=== PATIENT | male | born 1950 | race Caucasian/White ===

== ENCOUNTER 2020-03-18 06:11 | Outpatient (REF) | payer MEDICARE, MEDICAID, SELFPAY ==
[2020-03-18 11:30] LABS: MANUAL DIFF FLAG NO
[2020-03-18 11:40] LABS: Basophils Percent Auto 0.6 % (0-2); Eosinophils Absolute Auto 0.1 X10*3/uL (0.0-0.4); Eosinophils Percent Auto 1.6 % (0-4); Hematocrit 48.5 % (42-52); Hemoglobin 15.6 g/dl (14.0-18.0); Lymphocytes Percent Auto 20.4 % (20-40); Mean Corpuscular HGB Conc 32.2 g/dl (31.0-36.0); Mean Corpuscular Hemoglobin 29.5 pg (27.0-33.0); Mean Corpuscular Volume 91.7 fL (80-98); Mean Platelet Volume 11.7 fL (9.4-12.4); Monocytes Absolute Auto 0.4 X10*3/uL (0.1-1.2); Monocytes Percent Auto 8.4 % (2-11); Neutrophils Absolute Auto 3.4 X10*3/uL (2.0-8.3); Platelet Count 187 X10*3/uL (160-400); Red Blood Count 5.29 X10*6/uL (4.60-5.80); Red Cell Distribution Width 12.9 % (11.0-16.0); White Blood Count 4.9 X10*3/uL (4.8-10.8)
[2020-03-18 11:48] LABS: Estimated Average Glucose 114 mg/dL; Hemoglobin A1C 149.8022 umol/L; Hemoglobin A1c % 5.6 %
[2020-03-18 12:02] LABS: Alanine Aminotransferase 14 U/L (0-40); Albumin Level 3.9 g/dL (3.5-5.0); Alkaline Phosphatase 69 U/L (39-117); Anion Gap 13 (12-20); Aspartate Amino Transferase 13 U/L (5-37); Bilirubin Direct 0.3 mg/dL (0.0-0.5); Bilirubin Total 0.6 mg/dL (0.0-1.0); Blood Urea Nitrogen 16 mg/dL (9-16); Carbon Dioxide 25 mmol/L (22-29); Chloride 108 mmol/L (96-108); Cholesterol 109 mg/dL; Estimated Glomerular Filt Rate > 60; Glucose Fasting 106 mg/dL (60-99); HDL Cholesterol 39 mg/dL; LDL Cholesterol Calculated 63 mg/dl; Potassium 4.7 mmol/l (3.3-5.1); Sodium 141 mmol/L (135-145); Total Protein 6.8 g/dL (6.5-8.0); Triglycerides 36 mg/dL
[2020-03-18 12:41] LABS: Prostate Specific Antigen Scr < 0.05 ng/mL (<0.05-4.0)
== END 2020-03-18 06:12 | disposition home or self-care (01) ==
LOC: HO.HMGCLDS 06:11
PROVIDERS: PCP Internal Medicine; Visit Provider Internal Medicine
DX: E11.9 Type 2 diabetes mellitus without complications (principal); R53.83 Other fatigue
CPT/HCPCS: 36415; 80051; 80061; 80076; 82565; 82947; 83036; 84153; 84520; 85025

== ENCOUNTER 2020-07-02 12:02 | Day surgery (SDC) | payer MEDICARE, MEDICAID, SELFPAY ==
[2020-06-26 13:30] VITALS: BMI 25.2
--- NOTE | 2020-06-30 14:44 | HO.ANESPROP2 ---
Documented by User: Odalys Sanderson 06/30/20 14:44 HPI - Anesthesia Eval Consult details Narrative: 69yo M for Upper Endoscopy and Colonoscopy [facility] Past Medical History Medical History Anxiety Barretts esophagus Diabetes mellitus History of prostate cancer PTSD (post-traumatic stress disorder) Surgical History Surgical History Hx of colonoscopy Hx of esophagogastroduodenoscopy Hx of radical prostatectomy Social History Social History Are you a primary hospice patient care secretary to a significant other at home: No Do you presently have visiting nurse or other home services: No Smoking Status: Never smoker Use of substances other than those prescribed or required for medical reasons: No Have you been hit, kicked, punched, or otherwise hurt by someone within the past year? If so, by whom?: No Advance Directives: No Advance Directives Information Provided: No Advance Directives on File: No Recently lost weight without trying: No Meds Allergies Allergy/AdvReac Type Severity Reaction Status Date / Time No Known Allergies Allergy Verified 07/02/20 12:21 Home Medications Medication Instructions Recorded Confirmed Type acetaminophen [Tylenol] 650 mg PO Q6H PRN 06/26/20 06/26/20 History omeprazole 20 mg PO DAILY 06/26/20 06/26/20 History Exam Exam Date and Time: June 30, 2020 1444 Height,Weight and Vital Signs: Height 5 ft 7 in Weight 73.028 kg Assessment and Plan Assessment Anesthesia Assessment: Chart Reviewed Documented by User: Chanel Martinez 07/02/20 12:51 [facility] Past Medical History Medical History Anxiety Barretts esophagus Diabetes mellitus History of prostate cancer PTSD (post-traumatic stress disorder) Surgical History Surgical History Hx of colonoscopy Hx of esophagogastroduodenoscopy Hx of radical prostatectomy Social History Social History Are you a primary hospice patient care secretary to a significant other at home: No Do you presently have visiting nurse or other home services: No Smoking Status: Never smoker Use of substances other than those prescribed or required for medical reasons: No Have you been hit, kicked, punched, or otherwise hurt by someone within the past year? If so, by whom?: No Advance Directives: No Advance Directives Information Provided: No Advance Directives on File: No Recently lost weight without trying: No Meds Allergies Allergy/AdvReac Type Severity Reaction Status Date / Time No Known Allergies Allergy Verified 07/02/20 12:21 Home Medications Medication Instructions Recorded Confirmed Type acetaminophen [Tylenol] 650 mg PO Q6H PRN 06/26/20 06/26/20 History omeprazole 20 mg PO DAILY 06/26/20 06/26/20 History Exam Airway Mallampati Class: II TM Dist: >3cm Neck ROM: Full Assessment and Plan Assessment Anesthesia Assessment: Anesthesia Plan Discussed and Chart Reviewed Final Anesthetic Review NPO: Yes ASA Class: II Final Preanesthetic Review: No Changes in Pt Med Stat, Meds/Allgs Chart Reviewed, Consent Obtained/Reviewed and Anes Risks/Benef Reviewed Patient Risk: Low Procedure Risk: Low Assessment/Block/Sedation in SS: Assess/Block/Sedation-SS Anesthetic Plan Anesthetic Plan: MAC: Disposition: Standard PACU
[2020-07-02 12:37] VITALS: BP 143/85; PULSE 89; RESP 16; TEMP 36.6; O2SAT 99
[2020-07-02 12:42] LABS: Glucose, Whole Blood 86 mg/dL (60-115)
--- NOTE | 2020-07-02 13:07 | MHC.SHP ---
Pre-Procedural Eval Section A The patient is an INPATIENT: No Changes since office visit: No Cold of Flu in the past 2 weeks, No New Medical Problems, No Changes in Medication and No Patient answered all questions The History & Physical has been completed within 30 days and I have reviewed it.: Yes Section B Chief Complaint: screening,vbarrett's Allergies: Allergies Allergy/AdvReac Type Severity Reaction Status Date / Time No Known Allergies Allergy Verified 07/02/20 12:21 Plan I have reviewed the history and physical and performed a pertinent physical examination on my patient. No changes have occurred unless specified.
--- NOTE | 2020-07-02 13:58 | PM.OP ---
Brief Operative Note Date of Service: 07/02/20 Pre-op diagnosis: barretts, screening Procedure: colon polyp Surgeon: Antoni Cagle Anesthesia: MAC Estimated blood loss (mL): 5 Pathology: other (esophagus bxs, ) Condition: stable Disposition: PACU
[2020-07-02 14:00] VITALS: BP 127/83; PULSE 86; RESP 16; TEMP 36.2; O2SAT 99
[2020-07-02 14:15] VITALS: BP 141/79; PULSE 83; RESP 16; TEMP 36.2; O2SAT 98
--- NOTE | 2020-07-02 14:23 | HO.POSTANES ---
Post Anesthesia Evaluation Post Anesthesia Evaluation Vital Signs: Vital Signs Temp Pulse Resp BP Pulse Ox 07/02/20 14:00 97.1 F 86 16 127/83 99 07/02/20 12:37 97.9 F 89 16 143/85 H 99 Anesthesia: Monitored Mental Status: Awake Pain Control: Satisfactory Nausea/Vomiting: None Hydration: Adequate Anesthesia-Related Issues: No Anes. Related Issues
--- NOTE | 2020-07-02 14:31 | OP_ITS ---
SURGEON: Antoni Cagle MD INDICATIONS: 1. Prado's esophagus. 2. Colon cancer screening. PREOPERATIVE DIAGNOSIS: POSTOPERATIVE DIAGNOSIS: PROCEDURE PERFORMED: 1. Upper endoscopy with biopsy. 2. Colonoscopy to the cecum with snare polypectomy. ESTIMATED BLOOD LOSS: COMPLICATIONS: ANESTHESIA: ASSISTANTS: SPECIMENS: MEDICATIONS: Monitored anesthesia care. DESCRIPTION OF PROCEDURE: History and physical performed. The risks and benefits of the procedure were explained to the patient. Informed consent was obtained. The patient was placed in the left lateral decubitus position. A digital rectal exam was performed prior to the colonoscopy. First, the video gastroscope was introduced into the esophagus, stomach, and duodenum. Examination was performed and the scope was removed. He tolerated the procedure well and was repositioned for colonoscopy. A digital rectal exam was performed and was found to be normal. The Olympus pediatric video colonoscope was introduced into the rectum and advanced to the cecum. The advancement process was tedious due to a poor prep. The cecum was identified by transillumination, palpation, and identification of ileocecal valve. Examination was performed and the scope was removed. He tolerated both procedures well and was returned to recovery area in stable condition. FINDINGS: UPPER ENDOSCOPY: Esophagus: There was a segment of Prado's esophagus in the distal esophagus from 31 to 35 cm with no raised lesions or ulcerated areas. Biopsies were obtained at 31, 33 and 35 cm. There was a 5 cm hiatal hernia. Stomach: The stomach showed no evidence of masses, ulcers, or polyps. Duodenum: The bulb and second portion were normal. COLONOSCOPY: The exam was limited due to a large amount of liquid stool, solid stool, and undigested food. This was washed and suctioned as best possible and made the exam extended and difficult. In the right colon, was a 10 mm pedunculated polyp. The polyp was removed with a snare, but could not be recovered due to the poor prep. No other polyps were identified. Retroflexed examination showed moderately large internal hemorrhoids. IMPRESSION: 1. Prado's esophagus. 2. Hiatal hernia. 3. Colon polyp. 4. Limited examination. RECOMMENDATIONS: 1. Follow up the biopsy results. 2. Repeat colonoscopy should be considered in 1 to 3 years due to the limitations of today's exam and the findings. MD NURY Knowles/ANDREEA / [id number]
== END 2020-07-02 14:39 | disposition home or self-care (01) ==
PROVIDERS: PCP Internal Medicine; Visit Provider Internal Medicine Gastroenterology
PROC: (CPT 45385; principal; 2020-07-02 13:00)
DX: Z12.11 Encounter for screening for malignant neoplasm of colon (principal); K63.5 Polyp of colon; K22.70 Barrett's esophagus without dysplasia; K21.00 Gastro-esophageal reflux disease with esophagitis, without bleeding; K44.9 Diaphragmatic hernia without obstruction or gangrene; E11.9 Type 2 diabetes mellitus without complications; Z79.899 Other long term (current) drug therapy
CPT/HCPCS: 45385; 43239; 82947; 88305

== ENCOUNTER 2020-08-13 10:06 | Outpatient (REF) | payer MEDICARE, MEDICAID, SELFPAY ==
--- NOTE | ~2020-08-13 | CT_ITS ---
EXAMINATION: CT HEAD WITHOUT CONTRAST CLINICAL INFORMATION: Pain over the right parietal area COMPARISON: None TECHNIQUE: Contiguous axial imaging was performed from the skull base to vertex without intravenous administration of contrast. This CT examination was performed using dose optimization techniques as appropriate, variously including the following: *Automated exposure control *Adjustment of mA and/or kV according to patient size (this includes techniques or standardized protocols for targeted exams where dose is matched to indication/reason for exam; i.e. extremities or head) *Use of iterative reconstruction technique DLP: 741 mGy-cm FINDINGS: There is no evidence of acute intracranial hemorrhage or territorial infarction. No abnormal mass effect or midline shift is seen. Rios to white matter differentiation is well preserved. No extra-axial fluid collections are identified. The ventricles are normal in size. There is no abnormal attenuation within the brain parenchyma. There is benign hyperostosis frontalis interna. The osseous structures and soft tissues are normal. There is a small polyp or retention cyst at the roof of left maxillary sinus. Rest of paranasal sinuses are well-aerated and clear. CT/CT head/brain wo con IMPRESSION: No acute intracranial process seen.
== END 2020-08-13 10:07 | disposition home or self-care (01) ==
LOC: HO.CT 10:06
PROVIDERS: PCP Internal Medicine; Visit Provider Internal Medicine
DX: R41.82 Altered mental status, unspecified (principal)
CPT/HCPCS: 70450

== ENCOUNTER 2020-09-01 16:06 | Inpatient (IN) | payer MEDICARE, MEDICAID, SELFPAY ==
--- NOTE | ~2020-09-01 | US_ITS ---
EXAMINATION: US VENOUS ULTRASOUND WITH DOPPLER LOWER EXTREMITY, BILATERAL CLINICAL INFORMATION: Edema pain COMPARISON: None TECHNIQUE: Ultrasound of the deep veins is performed from the hip to the calf with compression sonography and color and pulse Doppler assessment. Spectral analysis with color-flow imaging is performed. FINDINGS: RIGHT: There is normal venous compression and respiratory variation and augmented flow. The visualized common femoral vein, superficial femoral vein, profunda femoral vein, popliteal vein, and the trifurcation region shows no evidence of deep venous thrombosis. There is no significant popliteal fossa cyst. Subcutaneous edema noted lymph nodes present in the groin likely reactive LEFT: There is normal venous compression and respiratory variation and augmented flow. The visualized common femoral vein, superficial femoral vein, profunda femoral vein, popliteal vein, and the trifurcation region shows no evidence of deep venous thrombosis. There is no significant popliteal fossa cyst. Subcutaneous edema noted. Lymph nodes present in the groin likely reactive If the patient's symptoms persist, followup ultrasound in 5 days 7 days might be of value to exclude proximal propagation from a non-visualized calf vein. US/US venous duplex LE BI IMPRESSION: No DVT demonstrated in the right and left lower extremity.
[2020-09-01 19:17] VITALS: BP 150/85; PULSE 90; RESP 16; TEMP 36.6; O2SAT 100; BMI 24.8
--- NOTE | 2020-09-01 19:49 | ED.PSYCH ---
HPI - Psych General Chief Complaint: Psychiatric Symptoms <Josse Garrett MD - Last Filed: 09/02/20 01:22> Stated Complaint: Crisis <Josse Garrett MD - Last Filed: 09/02/20 01:22> Time Seen by Provider: 09/01/20 19:13 <Josse Garrett MD - Last Filed: 09/02/20 01:22> Source: patient and family (System) <Josse Garrett MD - Last Filed: 09/02/20 01:22> Mode of arrival: ambulatory <Josse Garrett MD - Last Filed: 09/02/20 01:22> Limitations: no limitations <MD Nanette Lau Last Filed: 09/02/20 01:22> History of Present Illness HPI Narrative: 69-year-old male with history of PTSD, anxiety, came in with his sister for evaluation of insomnia at night and being anxious at night time. Patient lives with his sister,, patient only sleeps about 2-3 hours at night time then after the patient become active and disturb everybody else leave again the house, patient during the interview is quite and sister with given history for the patient. Patient decline SI her HI. <Josse Garrett MD - Last Filed: 09/02/20 01:22> Related Data Home Medications: Home Medications Medication Instructions Recorded Confirmed lorazepam 1 tab PO TID PRN 09/01/20 09/01/20 mirtazapine 1 tab PO BEDTIME 09/01/20 09/01/20 omeprazole 1 cap PO DAILY 09/01/20 09/01/20 <Josse Garrett MD - Last Filed: 09/02/20 01:22> Allergies/Adverse Reactions: Allergies Allergy/AdvReac Type Severity Reaction Status Date / Time No Known Allergies Allergy Verified 07/02/20 12:21 <Josse Garrett MD - Last Filed: 09/02/20 01:22> Review of Systems Review of Systems: All other systems are reviewed and are negative Constitutional: Reports as per HPI and Reports no additional constitutional complaints Eyes: Reports as per HPI and Reports no additional eye complaints Reports system reviewed and no additional complaints, except as documented Cardiovascular: Reports as per HPI and Reports no additional cardiovascular complaints Respiratory: Reports as per HPI and Reports no additional respiratory complaints Gastrointestinal: Reports as per HPI and Reports no additional gastrointestinal complaints Genitourinary: Reports no additional female genitourinary complaints Musculoskeletal: Reports no additional musculoskeletal complaints Skin/Breast: Reports system reviewed and no additional complaints, except as docu Psychiatric: Reports no additional psychiatric complaints Endocrine: Reports no additional endocrine complaints Hematologic/Lymphatic: Reports no additional hematologic/lymphatic complaints Allergic/Immunologic: Reports no additional allergic/immunologic complaints Reports system reviewed and no additional complaints, except as documented and Reports Abnormal speech present <Josse Garrett MD - Last Filed: 09/02/20 01:22> [facility] Past Medical History Medical History: Medical History Anxiety Barretts esophagus Developmental delay, mild Diabetes mellitus History of prostate cancer PTSD (post-traumatic stress disorder) <Josse Garrett MD - Last Filed: 09/02/20 01:22> Surgical History: Surgical History Hx of colonoscopy Hx of esophagogastroduodenoscopy Hx of radical prostatectomy <Josse Garrett MD - Last Filed: 09/02/20 01:22> Social History Social History: Social History Alcohol intake: never Smoking Status: Never smoker Use of substances other than those prescribed or required for medical reasons: No Advance Directives: No Advance Directives Information Provided: No <Josse Garrett MD - Last Filed: 09/02/20 01:22> Physical Exam Vital Signs: Vital Signs: Last Vital Signs Temp 98.8 F 09/02/20 14:43 Pulse 87 09/02/20 14:43 Resp 13 09/02/20 14:43 BP 128/60 09/02/20 14:43 Pulse Ox 96 09/02/20 14:43 Body Mass Index 24.8 Vital signs have been reviewed as appeared to be correct. Blood pressure normal. Heart rate normal. Respiration rate normal. Temperature normal. Oxygen saturation normal. <Josse Garrett MD - Last Filed: 09/02/20 01:22> Vital Signs: Last Vital Signs Temp 98.8 F 09/02/20 14:43 Pulse 87 09/02/20 14:43 Resp 13 09/02/20 14:43 BP 128/60 09/02/20 14:43 Pulse Ox 96 09/02/20 14:43 Body Mass Index 24.8 <LUANN Mcneill - Last Filed: 09/02/20 16:04> Appearance: Alert. Oriented X3. No acute distress. Head: Normal external exam. Normocephalic. Atraumatic. No Hummel signs noted. No raccoon eyes noted Eyes: PERRLA. EOMI. Conjunctiva and sclera normal. Eyelids normal. ENT: TM's Normal. Pharynx normal. Uvula midline. Moist mucous membranes. No trismus noted. No drooling noted. No muffled voice noted. Neck: Normal inspection. Neck supple. FROM. No adenopathy. Thyroid Normal. No meningeal signs. No neck mass noted. CVS: Normal heart rate and rhythm. Heart sound normal. No murmurs noted. Pulses normal throughout. Respiratory: No respiratory distress. Painless inspiration. Breath sounds normal. No wheezes/rales/rhonchi noted. Chest nontender. No accessory muscle usage noted or decreased air movement noted. Abdomen: Soft and nontender. Bowel sounds normal in all 4 quadrants. No distention noted. No organomegaly noted. No visible injury noted. Back: No CVA tenderness. Full range of motion noted. Skin: Skin warm and dry. Normal skin color. Normal skin turgor. No rashes/lesions/lacerations noted. Extremities: No lower extremity edema. Extremities exhibit normal range of motion. Extremities nontender. Neuro: Oriented X 3. No motor deficit. No sensory deficit. Reflexes normal. <Josse Garrett MD - Last Filed: 09/02/20 01:22> Course Course Course Narrative: Physician observation initiated. Patient is pending evaluation by crisis. Labs and vitals stable <LUANN Mcneill - Last Filed: 09/02/20 16:04> MDM - Psych Lab Data Labs: Lab Results 09/01/20 09/01/20 Range/Units 21:46 21:46 Urine Color STRAW Urine Appearance CLEAR Urine pH 7.5 (5.0-8.0) Ur Specific [place] 1.015 (1.005-1.025) Urine Protein NEG (NEG-TRACE) MG/DL Urine Glucose (UA) 100 H (NEG) MG/DL Urine Ketones NEG (NEG) MG/DL Urine Blood NEG (NEG) Urine Nitrite NEG (NEG) Ur Leukocyte Esterase NEG (NEG) Urine Opiates Screen Not Detected (Not Detect) Ur Barbiturates Screen Not Detected (Not Detect) Ur Phencyclidine Scrn Not Detected (Not Detect) Ur Amphetamines Screen Not Detected (Not Detect) U Benzodiazepines Scrn Not Detected (Not Detect) Urine Cocaine Screen Not Detected (Not Detect) U Marijuana (THC) Screen Not Detected (Not Detect) <Josse Garrett MD - Last Filed: 09/02/20 01:22> Lab Results 09/01/20 09/01/20 Range/Units 21:46 21:46 Urine Color STRAW Urine Appearance CLEAR Urine pH 7.5 (5.0-8.0) Ur Specific [place] 1.015 (1.005-1.025) Urine Protein NEG (NEG-TRACE) MG/DL Urine Glucose (UA) 100 H (NEG) MG/DL Urine Ketones NEG (NEG) MG/DL Urine Blood NEG (NEG) Urine Nitrite NEG (NEG) Ur Leukocyte Esterase NEG (NEG) Urine Opiates Screen Not Detected (Not Detect) Ur Barbiturates Screen Not Detected (Not Detect) Ur Phencyclidine Scrn Not Detected (Not Detect) Ur Amphetamines Screen Not Detected (Not Detect) U Benzodiazepines Scrn Not Detected (Not Detect) Urine Cocaine Screen Not Detected (Not Detect) U Marijuana (THC) Screen Not Detected (Not Detect) <LUANN Mcneill - Last Filed: 09/02/20 16:04> Discharge Plan Discharge Clinical Impression: Acute anxiety, Chronic post-traumatic stress disorder <Josse Garrett MD - Last Filed: 09/02/20 01:22> Prescriptions: No Action omeprazole 40 mg capsule,delayed release(DR/EC) 1 cap PO DAILY RF: 0 lorazepam 0.5 mg tablet 1 tab PO TID PRN (Reason: Anxiety) RF: 0 mirtazapine 15 mg tablet 1 tab PO BEDTIME RF: 0 <Josse Garrett MD - Last Filed: 09/02/20 01:22>
--- NOTE | 2020-09-01 20:02 | PC.NURSE ---
Pt very cooperative during change management manager. Offered and received snack.
--- NOTE | 2020-09-01 20:26 | PC.NURSE ---
Faxed consult to [facility]. Confirmed fax- reported eval will be done at earlier 3rd shift.
[2020-09-01 21:09] VITALS: BP 143/84; PULSE 91; RESP 14; O2SAT 100
[2020-09-01 21:56] LABS: Glucose Urine UA 100 MG/DL (NEG); Leukocyte Esterase Urine NEG (NEG); Nitrite Urine NEG (NEG); PH 7.5 (5.0-8.0); Specific Gravity - Urine 1.015 (1.005-1.025); Urine Blood NEG (NEG); Urine Ketones NEG (NEG); Urine Protein NEG (NEG-TRACE)
[2020-09-01 21:58] LABS: Appearance Urine CLEAR; Color Urine STRAW
[2020-09-01 22:07] LABS: Amphetamine Screen Urine Not Detected (Not Detect); Barbiturates, Urine Not Detected (Not Detect); Benzodiazepines Screen Urine Not Detected (Not Detect); Cannabinoid Screen Urine Not Detected (Not Detect); Cocaine Screen Urine Not Detected (Not Detect); Opiate Screen Urine Not Detected (Not Detect); Phencyclidine Screen Urine Not Detected (Not Detect)
[2020-09-01 23:10] VITALS: BP 134/84; PULSE 89; RESP 18; TEMP 36.7; O2SAT 98
[2020-09-02 01:13] VITALS: BP 120/74; PULSE 89; RESP 16; O2SAT 97
[2020-09-02] MEDS: diphenhydrAMINE HCL 25 MG TABLET 50 MG PO (01:14)
--- NOTE | 2020-09-02 01:25 | PC.NURSE ---
Pt medicated per mar for difficulty sleeping. Family member at bedside. Environmental stimuli decreased to aid sleep.
[2020-09-02] MEDS: Omeprazole 40 MG CAPSULE.DR PO (07:45)
[2020-09-02] MEDS: LORazepam 0.5 MG TABLET PO ×3 (07:47→23:01)
--- NOTE | 2020-09-02 07:59 | PC.NURSE ---
[facility] contacted regarding evaluation - no clinician available until after 12 today.
--- NOTE | 2020-09-02 07:59 | PC.NURSE ---
report taken from frantz rn pt here for increased agitation and psychiatric s/s. pt awaiting n eval, has been faxed and called. family member at bedside, pt appears calm and cooperative at this time. 1:[address] d/t reported si. eating breakfast, medicated w morning meds, tolerating po w/o issue.
[2020-09-02 10:53] VITALS: BP 144/85; PULSE 107; RESP 18; O2SAT 96
--- NOTE | 2020-09-02 13:50 | PC.NURSE ---
[facility] called to find out when clinician may be out for eval, [facility] they will be out for eval on second shift .
[2020-09-02 14:43] VITALS: BP 128/60; PULSE 87; RESP 13; TEMP 37.1; O2SAT 96
--- NOTE | 2020-09-02 16:10 | PC.NURSE ---
per care team, pt to be seen by care team this evening.
--- NOTE | 2020-09-02 22:20 | MHC.CARE ---
CARE team completed crisis evaluation with pt and his sister. Disposition is for inpt psych placement. Status is voluntary at this time. Pt, family, and DDS providers are all in agreement with plan of care. Medical records from [facility] visit this past week were requested, acquired, and reviewed. director call center sales psychiatrist consulted, with recommendations that specific labs be drawn in addition to labs that were completed at [facility]. Med adjustment also recommended. Both lab and med suggestions were communicated to the ED provider. Pt will remain in ED and will be presented for possible admission to tomorrow 09/03/20.
[2020-09-02] MEDS: Mirtazapine 15 MG TABLET PO (22:55)
[2020-09-02] MEDS: QUEtiapine Fumarate 25 MG TABLET PO (23:02)
[2020-09-02 23:06] VITALS: BP 148/81; PULSE 100; RESP 15; O2SAT 95
[2020-09-03 05:34] LABS: MANUAL DIFF FLAG NO
[2020-09-03 05:35] LABS: Basophils Percent Auto 0.2 % (0-2); Eosinophils Absolute Auto 0.1 X10*3/uL (0.0-0.4); Eosinophils Percent Auto 1.2 % (0-4); Hematocrit 44.9 % (42-52); Hemoglobin 14.7 g/dl (14.0-18.0); Imm Gran Abs Auto 0.01 X10*3/uL (0.00-0.03); Imm Gran Pct Auto 0.2 % (0.0-0.4); Lymphocytes Absolute Auto 1.3 X10*3/uL (1.2-4.9); Lymphocytes Percent Auto 22.5 % (20-40); Mean Corpuscular HGB Conc 32.7 g/dl (31.0-36.0); Mean Corpuscular Hemoglobin 29.3 pg (27.0-33.0); Mean Corpuscular Volume 89.4 fL (80-98); Mean Platelet Volume 10.2 fL (9.4-12.4); Monocytes Absolute Auto 0.5 X10*3/uL (0.1-1.2); Monocytes Percent Auto 8.5 % (2-11); Neutrophils Percent Auto 67.4 % (45-73); Platelet Count 202 X10*3/uL (160-400); Red Blood Count 5.02 X10*6/uL (4.60-5.80); Red Cell Distribution Width 13.1 % (11.0-16.0); White Blood Count 5.9 X10*3/uL (4.8-10.8)
[2020-09-03 05:52] LABS: COVID-19 Test Negative (Negative)
[2020-09-03 06:01] LABS: Ethanol < 10 mg/dL
[2020-09-03 06:08] LABS: Alanine Aminotransferase 17 U/L (0-40); Albumin Level 3.3 g/dL (3.5-5.0); Alkaline Phosphatase 75 U/L (39-117); Anion Gap 9 (12-20); Aspartate Amino Transferase 12 U/L (5-37); Bilirubin Total 0.7 mg/dL (0.0-1.0); Blood Urea Nitrogen 13 mg/dL (9-16); C Reactive Protein 0.66 mg/dL (< or = 0.50); Calcium 8.8 mg/dL (8.4-10.2); Carbon Dioxide 26 mmol/L (22-29); Chloride 109 mmol/L (96-108); Creatinine Clr Calc Pharmacy 97.2; Estimated Glomerular Filt Rate > 60; Glucose Random 104 mg/dL (60-115); Sodium 140 mmol/L (135-145); Total Protein 5.8 g/dL (6.5-8.0)
[2020-09-03 06:24] LABS: Thyroid Stimulating Hormone 1.21 uIU/mL (0.32-4.0)
[2020-09-03] MEDS: Omeprazole 40 MG CAPSULE.DR PO (06:42)
[2020-09-03] MEDS: LORazepam 1 MG TABLET PO ×2 (06:43→20:08)
--- NOTE | 2020-09-03 06:44 | PC.NURSE ---
patients sister who slept in the room in a chair all night had to leave to go to work, the sister made sure she told him that she is leaving and her will be here at 1030, as soon at the sister left the patient started pacing in the room trying to lae stating im at the wrong hospital i have to leave . order received from Dr Velarde for 1mg of ativan PO, given per order
[2020-09-03 07:11] VITALS: BP 142/96; PULSE 111; RESP 18; TEMP 36.4; O2SAT 98
[2020-09-03 08:20] LABS: Syphilis Screen Nonreactive (Nonreactive)
[2020-09-03 08:32] LABS: Folate 9.7 ng/mL (> or = 4.0); Vitamin B12 358 pg/mL (200-900)
[2020-09-03 08:33] VITALS: BP 99/62; PULSE 107; RESP 20; TEMP 36.7; O2SAT 96
[2020-09-03 09:05] LABS: HIV AB/AG Nonreactive (Nonreactive); HIV Num 1 0.06 S/CO (0.00-0.99)
[2020-09-03] MEDS: LORazepam 0.5 MG TABLET PO (12:28)
--- NOTE | 2020-09-03 12:43 | PC.NURSE ---
pt steady on feet. perseverating on when he'll get clothing back. family at bedside untill just now. sitter present and engaging patient with coloring and magazines. pt is calm but family stated he seemed to be more aggitated so PRN ativan given. skin pwd. good eye contact. awaits room.
[2020-09-03 15:05] VITALS: BP 110/85; PULSE 112; RESP 18; O2SAT 98
--- NOTE | 2020-09-03 15:26 | PC.NURSE ---
sitter remains at bedside. reassuring patient that his family will return to visit. pt in recliner.
--- NOTE | 2020-09-03 18:51 | PC.NURSE ---
family under impression that patient would go to [facility] b/f 7p. [facility] called. no admissions tonight. this rn to contact Kinjal from Care team.
--- NOTE | 2020-09-03 18:55 | PC.NURSE ---
Padmini from care team to come speak with sister b/f 8pm.
[2020-09-03 19:51] VITALS: BP 129/81; PULSE 104; RESP 18; TEMP 36.5; O2SAT 98
[2020-09-03] MEDS: QUEtiapine Fumarate 25 MG TABLET PO (20:08)
[2020-09-03] MEDS: Mirtazapine 15 MG TABLET PO (20:08)
--- NOTE | 2020-09-03 20:51 | PC.NURSE ---
Patient just got transferred main ED, patient alert and oriented x 4, gait intact, resting in his room watching TV, no distress reported, will continue to monitor.
[2020-09-04 01:18] VITALS: BP 142/91; PULSE 99; RESP 16; TEMP 36.4; O2SAT 98
[2020-09-04] MEDS: Omeprazole 40 MG CAPSULE.DR PO (06:40)
--- NOTE | 2020-09-04 07:30 | PC.NURSE ---
Report received from OLI López. Pt resting, resp unlabored.
[2020-09-04 07:54] VITALS: BP 126/80; PULSE 109; RESP 17; TEMP 36.7; O2SAT 98
[2020-09-04] MEDS: LORazepam 1 MG TABLET PO ×2 (08:42→20:06)
--- NOTE | 2020-09-04 08:53 | PC.NURSE ---
Pt sitting in room, accepted am medications as ordered. Pt pleasant. oriented to person only.
--- NOTE | 2020-09-04 11:26 | PC.NURSE ---
Pt resting- brother in law at bedside. Pt aware that he will be transferred to - appears confused ? thought blocking.
--- NOTE | 2020-09-04 11:59 | PC.NURSE ---
Late entry: Pt offered toileting- accepted - pt moved his bowels but then when wiping became disorganized, requiring assistance and cleaning. Pt with what appears to be healing abrasions on right shoulder- appears to have had similar areas now healed on rest of back. Yvonne Reese aware.
--- NOTE | 2020-09-04 12:17 | PC.NURSE ---
Pt sister in to visit.
--- NOTE | 2020-09-04 12:47 | ECG_ITS ---
Test Reason : CLERANCE Blood Pressure : / mmHG Vent. Rate : 092 BPM Atrial Rate : 092 BPM P-R Int : 138 ms QRS Dur : 074 ms QT Int : 342 ms P-R-T Axes : 067 -38 050 degrees QTc Int : 422 ms Normal sinus rhythm Left axis deviation Abnormal ECG No previous ECGs available Referred By: Generic ED Physician Electronically Signed By:FEDERICO GOLD
--- NOTE | 2020-09-04 12:48 | PC.NURSE ---
Report given to OLI Lemos on m%. EKG ordered as requested.
--- NOTE | 2020-09-04 12:56 | PC.NURSE ---
Pt currently eating lunch, sister at bedside. Per sister, pt pleasant, cooperative w/ care
[2020-09-04] MEDS: Sennosides 8.6 MG TABLET PO (13:18)
[2020-09-04 14:00] VITALS: RESP 20
[2020-09-04 16:30] VITALS: BP 125/81; PULSE 107; RESP 17; TEMP 36.3; O2SAT 97
--- NOTE | 2020-09-04 16:40 | PC.NURSE ---
Pt awake, alert - pt assisted to the toilet, voided. Pt pleasant, converses briefly w/ staff. Per sister, abrasions on back are due to nervous habit of scratching himself when anxious.
--- NOTE | 2020-09-04 18:08 | PC.NURSE ---
Pt eating dinner, visiting w/ family. Pt initially worried that family would not be coming in, tearful, requiring reassurance. Now pt conversing w/ sister, affect even.
[2020-09-04] MEDS: QUEtiapine Fumarate 25 MG TABLET PO (23:00)
[2020-09-04] MEDS: Mirtazapine 15 MG TABLET PO (23:00)
--- NOTE | 2020-09-04 23:01 | PC.NURSE ---
this is the first [facility] admission for this 69 year old male. legal cv. dx ptsd, adjustment d/o, intellectual developmental d/o. pt was a referral from the CARE team. nurse to nurse, collateral information obtained prior to admission. patient participated in his admission to the best of his ability. struggles with situation but orient to place and is able to recall being aggressive to his sister at home ''but i don't know why' reports he drink 3 beers every weekend ''one on Tuesday, one on Tuesday and one on Tuesday'' patient has multiple supports and lives in an inlaw apartment,Sister Mary is identified as HCP as well as conservator. did have repetitive speech telling t/w that he has has his covid shot over and over, was very focused on his belongings and clothing. identified that he uses ''adult briefs'' bruising and scratches noted on r upper arm and has open areas from scratching on arms and back. has non open skin lesions and skin tags on his back. hx of mendieta's esophagus, diabetes, hx prostate cancer.oriented to unit.
--- NOTE | 2020-09-04 23:12 | PC.ADMIT ---
patient requires assistance and prompts for toileting, reports poor sleep and assessment indicates poor appetite. sister prepares food for him.
[2020-09-05] MEDS: traZODone HCL 50 MG TABLET PO (02:55)
[2020-09-05] MEDS: hydrOXYzine HCL 25 MG TABLET PO (02:55)
[2020-09-05] MEDS: Omeprazole 40 MG CAPSULE.DR PO (05:48)
[2020-09-05 06:00] VITALS: BP 118/76; PULSE 117; RESP 16; TEMP 36.2; O2SAT 97
[2020-09-05] MEDS: LORazepam 1 MG TABLET PO (09:02)
--- NOTE | 2020-09-05 15:39 | P.HPPS_ITS ---
HPI Chief Complaint: depression Sources of Information: patient interviewed and chart reviewed HPI Subjective Notes: Conditional Voluntary Narrative: The patient is a 69 year old male, single, with no children, unemployed, on disability, living with his family with good social support with the diagnosis of Cognitive Impairment with DSS support. The gigi ent is a very poor historian but as per crisis report, the patient has been anxious and his PCP started on Remeron and Ativan PRN. For the last month and a half, his functionality declined, with poor sleep (less than 3 hours), poor appetite and confusion with psychotic symptoms such as paranoia and delusions. He also was incontinent and the day of the admission he was smearing feces. During the intake interview, he was pleasantly confused, unable to fully answer elaborated responses. He was pleasant and cooperative but unable to provide more details. Past Psychiatric History: None Medical Evaluation Reviewed: Yes PENDING SALE TO [facility] Medical History Anxiety Barretts esophagus Developmental delay, mild Diabetes mellitus History of prostate cancer PTSD (post-traumatic stress disorder) Surgical History Hx of colonoscopy Hx of esophagogastroduodenoscopy Hx of radical prostatectomy Family History: Denies Social History: Unknown Substance History: None Trauma History: Denies Diagnostics Vital Signs (24Hr): Vital Signs - 24 hr 09/04/20 16:30 09/05/20 06:00 Temperature 97.4 F 97.1 F Pulse Rate 107 H 117 H Respiratory Rate 17 16 Blood Pressure 125/81 118/76 Pulse Oximetry 97 97 Body Mass Index 24.8 Labs Results: 09/03/20 05:25 09/03/20 05:25 Meds/Allergies Meds Home Medications Acetaminophen (Acetaminophen 325 Mg Tablet) 650 mg PO Q6H PRN PRN Reason: Headache/Pain Mild Scale (1-3) Al Hydroxide/Mg Hydroxide (Magnesium Hydrox/Alum Hydrox 30 Ml Oral.Susp) 30 ml PO Q6H PRN PRN Reason: Heartburn/Nausea Hydroxyzine HCl (Hydroxyzine Hcl 25 Mg Tablet) 25 mg PO BEDTIME PRN PRN Reason: Anxiety Last Admin: 09/05/20 02:55 Dose: 25 mg Documented by: Magnesium Hydroxide (Milk Of Magnesia 30 Ml Oral.Susp) 30 ml PO DAILY PRN PRN Reason: Constipation Mirtazapine (Mirtazapine 15 Mg Tablet) 15 mg PO BEDTIME [facility] Last Admin: 09/04/20 23:00 Dose: 15 mg Documented by: Omeprazole (Omeprazole 40 Mg Capsule.Dr) 40 mg PO DAILY@0630 [facility] Last Admin: 09/05/20 05:48 Dose: 40 mg Documented by: Pharmacy Consult (Consult Rx Perform Med Rec) 1 each MISCELLANE ONCE PRN PRN Reason: Consult order Quetiapine Fumarate (Quetiapine Fumarate 25 Mg Tablet) 25 mg PO BEDTIME [facility] Last Admin: 09/04/20 23:00 Dose: 25 mg Documented by: Trazodone HCl (Trazodone Hcl 25 Mg Halftab) 25 mg PO QID PRN PRN Reason: Anxiety Allergies Allergies Allergy/AdvReac Type Severity Reaction Status Date / Time No Known Allergies Allergy Verified 07/02/20 12:21 Mental Status Exam Mental Status Exam Patient Appearance: Well Grooomed (on hospital gowns) Patient Orientation: Person and Place Level of Consciousness: Awake and Follows Commands Patient Behavior: Appropriate Mood Description: Calm Affect Description: Constricted Patient Cognition Impaired: Yes Ability to Follow Directions: Fair Speech Pattern: Clear Thought Process: Slowed Thinking Thought Content: positive for Poverty of Content Judgement: Poor Assessment & Plan Assessment & Plan (1) Altered mental status, unspecified: Status: Acute Code(s): R41.82 - Altered mental status, unspecified (2) Pervasive developmental disorder: Status: Acute Code(s): F84.9 - Pervasive developmental disorder, unspecified Informed Consent: does not understand Reason for continued inpatient stay Substantial Risk for: harm to self and harm to others
[2020-09-05] MEDS: traZODone HCL 25 MG HALFTAB PO ×2 (16:53→20:10)
[2020-09-05 19:20] VITALS: BP 138/71; PULSE 104; TEMP 36.3
[2020-09-05] MEDS: QUEtiapine Fumarate 25 MG TABLET PO (20:08)
[2020-09-05] MEDS: Mirtazapine 15 MG TABLET PO (20:08)
[2020-09-06 06:00] VITALS: BP 122/80; PULSE 107; RESP 16; TEMP 36.5; O2SAT 99
[2020-09-06] MEDS: Omeprazole 40 MG CAPSULE.DR PO (06:38)
[2020-09-06] MEDS: LORazepam 1 MG TABLET PO ×2 (15:53→21:43)
[2020-09-06 16:00] VITALS: BP 144/83; PULSE 98
--- NOTE | 2020-09-06 17:46 | HO.PSYCHPN ---
Subjective Subjective Date of Service: 09/06/20 Reason For Visit: depression Subjective Notes: Conditional Voluntary Interim History: Ambulatory, quiet, slow to respond to questions. Pt's sister and brother in law visited. Sister is a nurse, Mary Vaughan [phone]. TC to TW after the visit with several concerns including her observations of a frightening decline in the past 24 hours since her visit yesterday. Identifies a loss of pt's ability to speak, being unable to identify Mary, then taking a few minutes to identify Mary, inability to recall his birthday, the names of his cats. Mary describes pt as gone . She believes that he is not being observed as closely as he should be and we are not communicating often enough with her. She also questioned why she would not be discussing this directly with a psychiatrist. Reports that pt is never able to tell you if anything is wrong. Sx of illness began after COVID vaccinations on 06/26 and 07/24/20. The past 6-7 weeks of decompensation she believes are due to being unable to sleep and possibly fearing COVID. Reports several medical work ups over the past weeks with negative results. Discussed a tentative plan to place a hold on Trazodone, Seroquel, Remeron, Atarax as current sx may be due to medicine SE. Brother in law will visit this afternoon, Mary will visit tomorrow and we will meet. Pt placed on orthstatic VS, Intake and Output and Five minute safety checks. Team will call family each shift to update Mary. Review of Systems Reports behavioral changes and Reports confusion Psychiatric: Reports abnormal sleep pattern, Reports behavioral changes and Reports confusion Mental Status Exam Mental Status Exam Patient Appearance: Appropriate Patient Orientation: Person Level of Consciousness: Awake, Disoriented, Alert and Follows Commands Patient Behavior: Appropriate, Cooperative and Passive Mood Description: Calm and Withdrawn Affect Description: Flat Patient Cognition Impaired: Yes Ability to Follow Directions: Good Speech Pattern: Difficulty Finding Words, Spontaneous Speech, Soft-Spoken and Long Pauses Memory Description: Remote Impaired Delusions: Present (questionable) Thought Process: Disoriented, Rumination (?) and Slowed Thinking Thought Content: positive for Disoriented, positive for Bigelow and positive for Poverty of Content Depressive Symptoms: Insomnia and Difficulty Sleeping Judgement: Poor Diagnostics Vital Signs (24Hr): Vital Signs - 24 hr 04/16/21 19:20 09/06/20 06:00 Temperature 97.4 F 97.7 F Pulse Rate 104 H 107 H Respiratory Rate 16 Blood Pressure 138/71 122/80 Pulse Oximetry 99 Body Mass Index 24.8 Labs Results: 09/03/20 05:25 09/03/20 05:25 Labs: Reports 1 CAT at [facility] and 3 CAT Scans with [facility] that are WNL. Labs appear wnl. CRP 0.66 T. Prot 5.8, Alb 3.3. Medications Medications Current Medications Generic Name Dose Route Start Last Admin Trade Name Freq PRN Reason Stop Dose Admin Acetaminophen 650 mg 09/04/20 16:34 Acetaminophen 325 Mg Tablet PO Q6H PRN Headache/Pain Mild Scale (1-3) Al Hydroxide/Mg Hydroxide 30 ml 09/04/20 16:34 Magnesium Hydrox/Alum Hydrox 30 Ml Oral.Susp PO Q6H PRN Heartburn/Nausea Hydroxyzine HCl 25 mg 09/04/20 16:34 09/05/20 02:55 Hydroxyzine Hcl 25 Mg Tablet PO 25 mg BEDTIME PRN Administration Anxiety Lorazepam 1 mg 09/06/20 14:53 09/06/20 15:53 Lorazepam 1 Mg Tablet PO 1 mg Q4H PRN Administration anxiety, insomnia Magnesium Hydroxide 30 ml 09/04/20 16:34 Milk Of Magnesia 30 Ml Oral.Susp PO DAILY PRN Constipation Mirtazapine 15 mg 09/02/20 01:15 09/05/20 20:08 Mirtazapine 15 Mg Tablet PO 15 mg BEDTIME [facility] Administration Omeprazole 40 mg 09/02/20 06:30 09/06/20 06:38 Omeprazole 40 Mg Capsule. PO 40 mg DAILY@0630 [facility] Administration Pharmacy Consult 1 each 09/01/20 20:25 Consult Rx Perform Med Rec MISCELLANE ONCE PRN Consult order Quetiapine Fumarate 25 mg 09/03/20 21:00 09/05/20 20:08 Quetiapine Fumarate 25 Mg Tablet PO 25 mg BEDTIME [facility] Administration Trazodone HCl 25 mg 09/05/20 15:33 09/05/20 20:10 Trazodone Hcl 25 Mg Halftab PO 25 mg QID PRN Administration Anxiety Allergies Allergies Allergy/AdvReac Type Severity Reaction Status Date / Time No Known Allergies Allergy Verified 07/02/20 12:21 Assessment & Plan Assessment & Plan (1) Altered mental status, unspecified: Status: Acute Code(s): R41.82 - Altered mental status, unspecified Assessment and Plan: -Hold Trazodone, Seroquel, Remeron, Atarax tonight -Lorazapem prn (pt has tolerated this by history) Family report a significant decline in cognition and LOF within 24 hours (2) Pervasive developmental disorder: Status: Acute Code(s): F84.9 - Pervasive developmental disorder, unspecified Assessment and Plan: Family reports a sharp decline in cognition and LOF within 24 hours. Increase in monitoring, hold meds-?adverse response and ongoing eval. Greater than 50% of the session was spent on counseling and/or coordination of care Reason for contiued inpatient stay Substantial Risk for: inability to function, rapid decompensation and med/psych decompensation
[2020-09-06 19:40] VITALS: BP 138/81; PULSE 114; TEMP 36.9
[2020-09-07 06:30] VITALS: BP 110/72; PULSE 104; RESP 16; TEMP 36.4; O2SAT 97
[2020-09-07] MEDS: Omeprazole 40 MG CAPSULE.DR PO (06:47)
[2020-09-07 10:00] VITALS: BP 126/85; PULSE 118
[2020-09-07 11:24] VITALS: BP 144/83; PULSE 96
[2020-09-07 11:27] VITALS: BP 115/85; PULSE 104
[2020-09-07] MEDS: LORazepam 1 MG TABLET PO ×2 (15:57→20:57)
[2020-09-07 16:00] VITALS: BP 141/88; PULSE 98
[2020-09-07 16:30] VITALS: BP 135/77; PULSE 99; TEMP 37.1
--- NOTE | 2020-09-07 17:09 | HO.PSYCHPN ---
Subjective Subjective Date of Service: 09/07/20 Reason For Visit: depression Subjective Notes: Conditional Voluntary Interim History: Visable on the unit. Showered. Able to call his sister from the nursing station. Alert, attentive, responsive, increase in verbal interactions. Sister Mary visited and finds pt improved with his recall still being impaired. Team reports pt slept. This morning able to recall the names of two of his three cats, Fabrizio, Dalton (did not mention Saud). Neuro consult pending. Hold on meds to continue. PRN Ativan available. Medication Compliance: Yes Side effects from medications: Yes (???) Attending Groups: No Review of Systems Reports behavioral changes and Reports confusion Psychiatric: Reports behavioral changes and Reports confusion Mental Status Exam Mental Status Exam Patient Appearance: Well Grooomed and Appropriate Patient Orientation: Person Level of Consciousness: Awake and Alert Patient Behavior: Appropriate, Cooperative and Good Eye Contact Mood Description: Calm and Withdrawn Affect Description: Flat Patient Cognition Impaired: Yes Ability to Follow Directions: Good Speech Pattern: Monotone, Spontaneous Speech, Soft-Spoken and Delayed Memory Description: Remote Impaired, Immediate Impaired and 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 Hallucinations: None Delusions: Not Present Thought Process: Confusion Thought Content: positive for Bono Judgement: Fair Diagnostics Vital Signs (24Hr): Vital Signs - 24 hr 09/06/20 19:40 09/07/20 06:30 09/07/20 10:00 Temperature 98.4 F 97.6 F Pulse Rate 114 H 104 H 118 H Respiratory Rate 16 Blood Pressure 138/81 110/72 126/85 Pulse Oximetry 97 09/07/20 11:24 09/07/20 11:27 Temperature Pulse Rate 96 104 H Respiratory Rate Blood Pressure 144/83 H 115/85 Pulse Oximetry Body Mass Index 24.8 Labs Results: 09/03/20 05:25 09/03/20 05:25 Medications Medications Current Medications Generic Name Dose Route Start Last Admin Trade Name Freq PRN Reason Stop Dose Admin Acetaminophen 650 mg 09/04/20 16:34 Acetaminophen 325 Mg Tablet PO Q6H PRN Headache/Pain Mild Scale (1-3) Al Hydroxide/Mg Hydroxide 30 ml 09/04/20 16:34 Magnesium Hydrox/Alum Hydrox 30 Ml Oral.Susp PO Q6H PRN Heartburn/Nausea Hydroxyzine HCl 25 mg 09/04/20 16:34 09/05/20 02:55 Hydroxyzine Hcl 25 Mg Tablet PO 25 mg BEDTIME PRN Administration Anxiety Lorazepam 1 mg 09/06/20 14:53 09/07/20 15:57 Lorazepam 1 Mg Tablet PO 1 mg Q4H PRN Administration anxiety, insomnia Magnesium Hydroxide 30 ml 09/04/20 16:34 Milk Of Magnesia 30 Ml Oral.Susp PO DAILY PRN Constipation Mirtazapine 15 mg 09/02/20 01:15 09/05/20 20:08 Mirtazapine 15 Mg Tablet PO 15 mg BEDTIME [facility] Administration Omeprazole 40 mg 09/02/20 06:30 09/07/20 06:47 Omeprazole 40 Mg Capsule.Dr PO 40 mg DAILY@0630 [facility] Administration Pharmacy Consult 1 each 09/01/20 20:25 Consult Rx Perform Med Rec MISCELLANE ONCE PRN Consult order Quetiapine Fumarate 25 mg 09/03/20 21:00 09/05/20 20:08 Quetiapine Fumarate 25 Mg Tablet PO 25 mg BEDTIME [facility] Administration Trazodone HCl 25 mg 09/05/20 15:33 09/05/20 20:10 Trazodone Hcl 25 Mg Halftab PO 25 mg QID PRN Administration Anxiety Allergies Allergies Allergy/AdvReac Type Severity Reaction Status Date / Time No Known Allergies Allergy Verified 07/02/20 12:21 Assessment & Plan Assessment & Plan (1) Altered mental status, unspecified: Status: Acute Code(s): R41.82 - Altered mental status, unspecified Assessment and Plan: -Continue the hold on Trazodone, Seroquel, Remeron, Atarax -Lorazapem prn (pt has tolerated this by history) Family report some improvement today. Neuro consult is requested Pt appears clearer, attentive, responsive and more active (2) Pervasive developmental disorder: Status: Acute Code(s): F84.9 - Pervasive developmental disorder, unspecified Greater than 50% of the session was spent on counseling and/or coordination of care Reason for contiued inpatient stay Substantial Risk for: inability to function and med/psych decompensation
[2020-09-08 06:00] VITALS: BP 122/77; PULSE 105; RESP 18; TEMP 36.7; O2SAT 99
[2020-09-08] MEDS: Omeprazole 40 MG CAPSULE.DR PO (06:32)
[2020-09-08] MEDS: LORazepam 1 MG TABLET PO ×2 (06:44→16:50)
[2020-09-08 08:33] LABS: Anion Gap 11 (12-20); Blood Urea Nitrogen 24 mg/dL (9-16); Carbon Dioxide 30 mmol/L (22-29); Chloride 110 mmol/L (96-108); Creatinine Clr Calc Pharmacy 86.9; Estimated Glomerular Filt Rate > 60; Glucose Random 125 mg/dL (60-115); Potassium 4.3 mmol/L (3.3-5.1); Sodium 147 mmol/L (135-145)
[2020-09-08 11:48] VITALS: BP 117/63; BP 118/65; PULSE 105; PULSE 99
[2020-09-08 11:49] VITALS: BP 100/56; PULSE 112
[2020-09-08 18:00] VITALS: BP 134/71; PULSE 107; TEMP 36.2
[2020-09-08] MEDS: LORazepam 0.5 MG TABLET PO (20:20)
--- NOTE | 2020-09-08 21:35 | HO.PSYCHPN ---
Subjective Subjective Date of Service: 09/08/20 Reason For Visit: depression Subjective Notes: Conditional Voluntary Interim History: Visable in milieu, less isolative, responsive, wandering, ?catatonia sx. Ativan prn and scheduled. Other meds on hold. Fecal incontinence. Call to sister, Mary Vaughan who reports pt continues to improve in family opinion, is more conversant, has brighter affect. One issue she raised is pt has returned to a behavior of concern not seen in 20+years-he is attracted to legs and by history has tried to touch/rub family members legs (only family and well known friends, not strangers). Pt attempted this twice with sister over the weekend-he put his hand on Valeries knee and told her she had nice slacks then reached to hold the calf of her leg. Family sees this as a regression. By history, pt finds support being part of a larger group. Sister managed a [employer] and [employer] for several years and pt was always active and involved in this, s Medication Compliance: Yes Side effects from medications: Yes Attending Groups: No Review of Systems Reports behavioral changes and Reports confusion Psychiatric: Reports behavioral changes, Reports confusion and Reports difficulty concentrating Mental Status Exam Mental Status Exam Patient Appearance: Appropriate Patient Orientation: Person, Place, Time and Situation Level of Consciousness: Alert Patient Behavior: Appropriate, Dependent, Cooperative, Passive, Fearful, Distractible and Good Eye Contact Mood Description: Flat Affect Description: Flat Patient Cognition Impaired: Yes Ability to Follow Directions: Good Speech Pattern: Difficulty Finding Words, Monotone, Spontaneous Speech and Soft-Spoken Memory Description: Remote Impaired and Episodic Impaired Hallucinations: None Delusions: Not Present Thought Process: Confusion Thought Content: positive for Celina, positive for Circumstantial and positive for Suicidal Ideation (denies) Judgement: Poor Diagnostics Vital Signs (24Hr): Vital Signs - 24 hr 09/08/20 06:00 09/08/20 11:48 09/08/20 11:49 Temperature 98.0 F Pulse Rate 105 H 105 H 112 H Respiratory Rate 18 Blood Pressure 122/77 117/63 100/56 L Pulse Oximetry 99 09/08/20 18:00 Temperature 97.2 F Pulse Rate 107 H Respiratory Rate Blood Pressure 134/71 Pulse Oximetry Body Mass Index 24.8 Labs Results: 09/03/20 05:25 09/08/20 07:43 Labs: Laboratory Results - last 48 hr 09/08/20 07:43 Sodium 147 H Potassium 4.3 Chloride 110 H Carbon Dioxide 30 H Anion Gap 11 L BUN 24 H D Creatinine 0.76 Estim Creat Clear Calc 86.9 Estimated GFR > 60 Random Glucose 125 H Calcium 9.0 Medications Medications Current Medications Generic Name Dose Route Start Last Admin Trade Name Freq PRN Reason Stop Dose Admin Acetaminophen 650 mg 09/04/20 16:34 Acetaminophen 325 Mg Tablet PO Q6H PRN Headache/Pain Mild Scale (1-3) Al Hydroxide/Mg Hydroxide 30 ml 09/04/20 16:34 Magnesium Hydrox/Alum Hydrox 30 Ml Oral.Susp PO Q6H PRN Heartburn/Nausea Hydroxyzine HCl 25 mg 09/04/20 16:34 09/05/20 02:55 Hydroxyzine Hcl 25 Mg Tablet PO 25 mg BEDTIME PRN Administration Anxiety Lorazepam 1 mg 09/06/20 14:53 09/08/20 16:50 Lorazepam 1 Mg Tablet PO 1 mg Q4H PRN Administration anxiety, insomnia Lorazepam 0.5 mg 09/08/20 21:00 09/08/20 20:20 Lorazepam 0.5 Mg Tablet PO 0.5 mg BID [facility] Administration Magnesium Hydroxide 30 ml 09/04/20 16:34 Milk Of Magnesia 30 Ml Oral.Susp PO DAILY PRN Constipation Mirtazapine 15 mg 09/02/20 01:15 09/05/20 20:08 Mirtazapine 15 Mg Tablet PO 15 mg BEDTIME [facility] Administration Omeprazole 40 mg 09/02/20 06:30 09/08/20 06:32 Omeprazole 40 Mg Capsule. PO 40 mg DAILY@0630 [facility] Administration Pharmacy Consult 1 each 09/01/20 20:25 Consult Rx Perform Med Rec MISCELLANE ONCE PRN Consult order Quetiapine Fumarate 25 mg 09/03/20 21:00 09/05/20 20:08 Quetiapine Fumarate 25 Mg Tablet PO 25 mg BEDTIME [facility] Administration Trazodone HCl 25 mg 09/05/20 15:33 09/05/20 20:10 Trazodone Hcl 25 Mg Halftab PO 25 mg QID PRN Administration Anxiety Allergies Allergies Allergy/AdvReac Type Severity Reaction Status Date / Time No Known Allergies Allergy Verified 07/02/20 12:21 Assessment & Plan Assessment & Plan (1) Altered mental status, unspecified: Status: Acute Code(s): R41.82 - Altered mental status, unspecified Assessment and Plan: -Continue the hold on Trazodone, Seroquel, Remeron, Atarax -Lorazapem scheduled and prn (pt has tolerated this by history) Family report ongoing improvement today with a return to behavior they have not observed in 20 years. Neuro consult is requested Pt appears clearer, attentive, responsive and more active Continues on 1&O (2) Pervasive developmental disorder: Status: Acute Code(s): F84.9 - Pervasive developmental disorder, unspecified Greater than 50% of the session was spent on counseling and/or coordination of care Reason for contiued inpatient stay Substantial Risk for: inability to function, rapid decompensation and med/psych decompensation
[2020-09-09 06:00] VITALS: BP 117/75; PULSE 95; TEMP 35.8
[2020-09-09] MEDS: Omeprazole 40 MG CAPSULE.DR PO (06:09)
[2020-09-09] MEDS: LORazepam 0.5 MG TABLET PO ×2 (08:42→20:17)
--- NOTE | 2020-09-09 10:32 | P.PNPSI_ITS ---
Subjective Subjective Date of Service: 09/09/20 Reason For Visit: depression Subjective Notes: Conditional Voluntary Interim History: The patient looked less confused today. He was assessed at [facility] and he reported that he slept well and he was doing fine. As per family's report, he is highly functional at baseline, he lives by himself in a in-law apartment. He was catatonic-like on Tuesday and all the medications were held and Ativan was re-started. A neuro-consult was ordered. As per nursing staff, he had Ativan AM and in the evening he had more behaviors. Medication Compliance: Yes Side effects from medications: No Attending Groups: Intermittent Review of Systems Review of Systems Yes all other systems are reviewed and are negative Mental Status Exam Mental Status Exam Patient Appearance: Well Grooomed (on hospital gowns) Patient Orientation: Person and Place Level of Consciousness: Awake (very concrete) Patient Behavior: Appropriate Mood Description: Withdrawn Affect Description: Constricted Patient Cognition Impaired: Yes Ability to Follow Directions: Good Speech Pattern: Clear Thought Process: Linear Thought Content: positive for Intact Judgement: Poor Diagnostics Vital Signs (24Hr): Vital Signs - 24 hr 09/08/20 11:48 09/08/20 11:49 09/08/20 18:00 Temperature 97.2 F Pulse Rate 105 H 112 H 107 H Blood Pressure 117/63 100/56 L 134/71 09/09/20 06:00 Temperature 96.5 F L Pulse Rate 95 Blood Pressure 117/75 Body Mass Index 24.8 Labs Results: 09/03/20 05:25 09/08/20 07:43 Labs: Laboratory Results - last 48 hr 09/08/20 07:43 Sodium 147 H Potassium 4.3 Chloride 110 H Carbon Dioxide 30 H Anion Gap 11 L BUN 24 H D Creatinine 0.76 Estim Creat Clear Calc 86.9 Estimated GFR > 60 Random Glucose 125 H Calcium 9.0 Medications Medications Current Medications Generic Name Dose Route Start Last Admin Trade Name Freq PRN Reason Stop Dose Admin Acetaminophen 650 mg 09/04/20 16:34 Acetaminophen 325 Mg Tablet PO Q6H PRN Headache/Pain Mild Scale (1-3) Al Hydroxide/Mg Hydroxide 30 ml 09/04/20 16:34 Magnesium Hydrox/Alum Hydrox 30 Ml Oral.Susp PO Q6H PRN Heartburn/Nausea Hydroxyzine HCl 25 mg 09/04/20 16:34 09/05/20 02:55 Hydroxyzine Hcl 25 Mg Tablet PO 25 mg BEDTIME PRN Administration Anxiety Lorazepam 1 mg 09/06/20 14:53 09/08/20 16:50 Lorazepam 1 Mg Tablet PO 1 mg Q4H PRN Administration anxiety, insomnia Lorazepam 0.5 mg 09/08/20 21:00 09/09/20 08:42 Lorazepam 0.5 Mg Tablet PO 0.5 mg BID [facility] Administration Magnesium Hydroxide 30 ml 09/04/20 16:34 Milk Of Magnesia 30 Ml Oral.Susp PO DAILY PRN Constipation Mirtazapine 15 mg 09/02/20 01:15 09/05/20 20:08 Mirtazapine 15 Mg Tablet PO 15 mg BEDTIME [facility] Administration Omeprazole 40 mg 09/02/20 06:30 09/09/20 06:09 Omeprazole 40 Mg Capsule. PO 40 mg DAILY@0630 [facility] Administration Pharmacy Consult 1 each 09/01/20 20:25 Consult Rx Perform Med Rec MISCELLANE ONCE PRN Consult order Quetiapine Fumarate 25 mg 09/03/20 21:00 09/05/20 20:08 Quetiapine Fumarate 25 Mg Tablet PO 25 mg BEDTIME [facility] Administration Trazodone HCl 25 mg 09/05/20 15:33 09/05/20 20:10 Trazodone Hcl 25 Mg Halftab PO 25 mg QID PRN Administration Anxiety Allergies Allergies Allergy/AdvReac Type Severity Reaction Status Date / Time No Known Allergies Allergy Verified 07/02/20 12:21 Assessment & Plan Assessment & Plan (1) Altered mental status, unspecified: Status: Acute Code(s): R41.82 - Altered mental status, unspecified Assessment and Plan: - Continue the hold on Trazodone, Seroquel, Remeron, Atarax - Lorazapem scheduled and prn (pt has tolerated this by history) - We will have a family meeting and gather more collateral information.F - Neuro consult is requested - Pt appears clearer, attentive, responsive and more active - Continues on 1&O (2) Pervasive developmental disorder: Status: Acute Code(s): F84.9 - Pervasive developmental disorder, unspecified Assessment and Plan: No new interventions Greater than 50% of the session was spent on counseling and/or coordination of care Reason for contiued inpatient stay Substantial Risk for: harm to self, harm to others and med/psych decompensation
--- NOTE | 2020-09-09 16:00 | PM.NEUROCN ---
History of Present Illness Data of Consult Service Date: 09/09/20 Primary Care Provider: Mamadou Naik MD HPI Reason for consult: Change in mental status, and deterioration in functional ability and insomn This a 69-year-old mentally challenged man who lives with his sister was admitted because of extreme anxiety that been building up along with insomnia and and in ability to sleep beyond 2-3 hours. As a result he has become dysfunction whereas he was high functioning before. He always needs to verbal cues to get things done which she is able to accomplish with that. He is also paranoid and afraid of everything. I was asked to evaluate him neurologically. She's had a CT scan of the brain which was unremarkable for age. His lab work is also unremarkable except he is slightly dehydrated with elevated sodium and BUN Review of Systems Eyes: Eyes: Reports no additional eye complaints ENT: Reports system reviewed and no additional complaints, except as documented and Reports Normal hearing present Cardiovascular: Cardiovascular: Reports no additional cardiovascular complaints Respiratory: Respiratory: Reports no additional respiratory complaints Gastrointestinal: Gastrointestinal: Reports no additional gastrointestinal complaints Genitourinary: Genitourinary: Reports no additional male genitourinary complaints Musculoskeletal: Musculoskeletal: Reports no additional musculoskeletal complaints Integumentary/Breasts: Skin/Breast: Reports system reviewed and no additional complaints, except as docu Neurologic: Reports as per HPI and Reports Normal hearing present Psychiatric: Psychiatric: Reports as per HPI Endocrine: Endocrine: Reports no additional endocrine complaints Hematologic/Lymphatic: Hematologic/Lymphatic: Reports no additional hematologic/lymphatic complaints Allergic/Immunologic: Allergic/Immunologic: Reports no additional allergic/immunologic complaints PMFSH Past Medical History Medical History Anxiety Barretts esophagus Developmental delay, mild Diabetes mellitus History of prostate cancer PTSD (post-traumatic stress disorder) Surgical History Surgical History Hx of colonoscopy Hx of esophagogastroduodenoscopy Hx of radical prostatectomy Social History Social History Household Members: Family Housing: Apartment Do you presently have visiting nurse or other home services: Yes (NURSE: Anneliese) Alcohol intake: never Smoking Status: Never smoker Use of substances other than those prescribed or required for medical reasons: No Currently Displaying Signs/Symptoms of Drug Intoxication Withdrawal: No Advance Directives: No Advance Directives Information Provided: No Do you have thoughts of harming others: None Do you have a plan to hurt others: No Plan Recently lost weight without trying: No service: No Sexual orientation: Don't Know Meds Allergies Allergy/AdvReac Type Severity Reaction Status Date / Time No Known Allergies Allergy Verified 07/02/20 12:21 Active Medications: Current Medications Generic Name Dose Route Start Last Admin Trade Name Freq PRN Reason Stop Dose Admin Acetaminophen 650 mg 09/04/20 16:34 Acetaminophen 325 Mg Tablet PO Q6H PRN Headache/Pain Mild Scale (1-3) Al Hydroxide/Mg Hydroxide 30 ml 09/04/20 16:34 Magnesium Hydrox/Alum Hydrox 30 Ml Oral.Susp PO Q6H PRN Heartburn/Nausea Hydroxyzine HCl 25 mg 09/04/20 16:34 09/05/20 02:55 Hydroxyzine Hcl 25 Mg Tablet PO 25 mg BEDTIME PRN Administration Anxiety Lorazepam 1 mg 09/06/20 14:53 09/08/20 16:50 Lorazepam 1 Mg Tablet PO 1 mg Q4H PRN Administration anxiety, insomnia Lorazepam 0.5 mg 09/08/20 21:00 09/09/20 08:42 Lorazepam 0.5 Mg Tablet PO 0.5 mg BID LIAM Administration Magnesium Hydroxide 30 ml 09/04/20 16:34 Milk Of Magnesia 30 Ml Oral.Susp PO DAILY PRN Constipation Mirtazapine 15 mg 09/02/20 01:15 09/05/20 20:08 Mirtazapine 15 Mg Tablet PO 15 mg BEDTIME LIAM Administration Omeprazole 40 mg 09/02/20 06:30 09/09/20 06:09 Omeprazole 40 Mg Capsule. PO 40 mg DAILY@0630 [facility] Administration Pharmacy Consult 1 each 09/01/20 20:25 Consult Rx Perform Med Rec MISCELLANE ONCE PRN Consult order Quetiapine Fumarate 25 mg 09/03/20 21:00 09/05/20 20:08 Quetiapine Fumarate 25 Mg Tablet PO 25 mg BEDTIME LIAM Administration Trazodone HCl 25 mg 09/05/20 15:33 09/05/20 20:10 Trazodone Hcl 25 Mg Halftab PO 25 mg QID PRN Administration Anxiety Home Medications Medication Instructions Recorded Confirmed Last Taken Type lorazepam 1 tab PO TID PRN 09/01/20 09/01/20 Unknown History mirtazapine 1 tab PO BEDTIME 09/01/20 09/01/20 Unknown History omeprazole 1 cap PO DAILY 09/01/20 09/01/20 Unknown History Physical Exam Vital Signs: Vital Signs: Last Vital Signs Temp 96.5 F L 09/09/20 06:00 Pulse 95 09/09/20 06:00 Resp 18 09/08/20 06:00 BP 117/75 09/09/20 06:00 Pulse Ox 99 09/08/20 06:00 Body Mass Index 24.8 Const: General: cooperative, comfortable, no acute distress, well developed, alert and awake Nutritional Appearance: well nourished Orientation/consciousness: oriented to person and oriented to place HENMT: Head: Yes normal to inspection, Yes normocephalic and Yes atraumatic Ears: hearing grossly normal bilaterally General nose exam: Normal external nose present Face and sinus: Yes normal facial exam Mouth: Normal oral and palatal mucosa present Eyes: General: appearance normal, both eyes and all related structures Visual Marcial: normal visual marcial by confrontation Alignment and Position: alignment normal Periorbital: periorbital findings normal Eyelids: Yes eyelids normal Conjunctivae: conjunctivae normal Sclerae: sclerae normal Corneas: corneas normal Pupils: Equal, round and reactive pupils present and Pupil accommodation reflex normal EOM: EOMs intact bilaterally Direct Ophthalmoscopy: normal light reflex Neck: Neck: Yes normal visual inspection, Yes full ROM and Yes no meningeal signs Thyroid: Thyroid normal Carotids: normal carotid upstroke and bounding pulses Chest: Chest palpation & inspection: normal inspection of the chest Resp: Effort & Inspection: normal respiratory effort Auscultation: clear to auscultation bilaterally Cardio: Rate: regular rate Rhythm: regular rhythm Heart sounds: S1 normal heart sound present and S2 normal heart sound present Peripheral pulses: Peripheral pulses 2+ throughout GI: Inspection: Yes normal to inspection Percussion: Yes normal to percussion Auscultation: normal bowel sounds Rectal Exam - Male: Yes deferred Back/Spine/Pelvis: Cervical Spine: normal cervical lordosis and cervical ROM normal Thoracic/Lumbar Spine: thoracic and lumbar spine normal to inspection Skin: General skin exam: no rashes or lesions noted Neuro: Other: Limited cognitive abilities but follows simple commands and communicates in simple sentences. Has some elements of anxiety. No hallucinations or thought disorder. General: oriented to person, oriented to place, gait normal, tone normal, moves all extremities, Normal light touch and pain sensation, no meningeal signs, no focal motor deficits, CN's II-XI intact bilaterally, normal sensation to monofilament and deep tendon reflexes 2+ bilaterally Cranial nerves: Yes CN's II-XII intact bilaterally, Yes Equal, round and reactive pupils present, Yes Bilaterally intact EOM present, Yes Nystagmus not present, Yes Normal facial strength present, Yes Midline tongue present, Yes Normal gag reflex present, Yes Symmetric palate elevation present, Yes Normal hearing present and Yes Ability to bilaterally rotate head present Cognition (Neuro): abnormal cognition Speech: Other speech findings present (Neuro) Gait exam (Neuro): Normal gait present Motor exam (neuro): 5/5 motor strength present throughout, Pronator motor function not present, no tremor noted, no asterixis, Motor fasciculations not present, Normal motor muscle tone present throughout and Motor abnormalities not present Deep tendon reflexes (DTR's): Right triceps reflex intensity grade: 2+, Left triceps reflex intensity grade: 2+, Rt Biceps (C5, C6): 2+, Left biceps reflex intensity grade: 2+, Right brachioradialis reflex intensity grade: 2+, Left brachioradialis reflex intensity grade: 2+, Right patellar reflex intensity grade: 2+, Left patellar reflex intensity grade: 2+, Right ankle reflex intensity grade: 2+ and Left ankle reflex intensity grade: 2+ Plantar Reflex Responses: downgoing: right, left and bilateral Coordination: [id number] test normal, [id number] test normal, tandem gait normal and Romberg test negative Pupils: Normal pupillary reactivity/response: bilateral Extrem: General: Yes normal to inspection, Yes normal exam except as noted and Yes no pedal edema Psych: Appearance: grossly normal Mental Status: mental status grossly normal Speech and movement: Normal speech and movement present and Clear speech present Affect: normal affect Attitude: cooperative Thought process: Normal thought process present Results Labs CBC & Chem 7: 09/03/20 05:25 09/08/20 07:43 Assessment and Plan (1) Altered mental status, unspecified: Problem details: Altered mental status appears to be related to his anxiety and insomnia. No major neurological problems or metabolic abnormalities other than slight dehydration. Status: Acute Treat anxiety and insomnia (2) Pervasive developmental disorder: Status: Acute (3) Acute anxiety: Status: Acute (4) Chronic post-traumatic stress disorder: Status: Acute
[2020-09-09 16:39] VITALS: BP 141/76; PULSE 98; RESP 16; TEMP 36.6; O2SAT 98
[2020-09-09] MEDS: LORazepam 1 MG TABLET PO (17:07)
[2020-09-10 06:00] VITALS: BP 126/73; PULSE 105; RESP 18; TEMP 36.4; O2SAT 98
[2020-09-10] MEDS: Omeprazole 40 MG CAPSULE.DR PO (06:14)
[2020-09-10 08:00] VITALS: BP 120/68; PULSE 98
[2020-09-10] MEDS: LORazepam 0.5 MG TABLET PO ×2 (08:01→21:03)
--- NOTE | 2020-09-10 09:53 | HO.PSYCHPN ---
Subjective Subjective Date of Service: 09/10/20 Reason For Visit: depression Subjective Notes: Conditional Voluntary Interim History: The patient has been pleasant but looks anxious. He doesn't seem to be on delirium anymore, unclear what medications caused the altered mental status. Neurology saw him and didn't find any major abnormalities. CT SCAN without any new abnormalities. Medication Compliance: Yes Side effects from medications: No Attending Groups: Intermittent Review of Systems Review of Systems Yes all other systems are reviewed and are negative Mental Status Exam Mental Status Exam Patient Appearance: Well Grooomed ([facility] gowns) Patient Orientation: Person, Place and Situation Level of Consciousness: Awake and Appropriate Patient Behavior: Cooperative and Passive Mood Description: Calm and Fearful Affect Description: Constricted Patient Cognition Impaired: Yes Ability to Follow Directions: Good Speech Pattern: Clear Memory Description: Normal for Patient Hallucinations: None Delusions: Not Present Thought Process: Slowed Thinking Thought Content: positive for Poverty of Content Depressive Symptoms: Increased Anxiety Judgement: Fair Diagnostics Vital Signs (24Hr): Vital Signs - 24 hr 09/09/20 16:39 09/10/20 06:00 Temperature 97.9 F 97.6 F Pulse Rate 98 105 H Respiratory Rate 16 18 Blood Pressure 141/76 H 126/73 Pulse Oximetry 98 98 Body Mass Index 24.8 Labs Results: 09/03/20 05:25 09/08/20 07:43 Medications Medications Current Medications Generic Name Dose Route Start Last Admin Trade Name Freq PRN Reason Stop Dose Admin Acetaminophen 650 mg 09/04/20 16:34 Acetaminophen 325 Mg Tablet PO Q6H PRN Headache/Pain Mild Scale (1-3) Al Hydroxide/Mg Hydroxide 30 ml 09/04/20 16:34 Magnesium Hydrox/Alum Hydrox 30 Ml Oral.Susp PO Q6H PRN Heartburn/Nausea Hydroxyzine HCl 25 mg 09/04/20 16:34 09/05/20 02:55 Hydroxyzine Hcl 25 Mg Tablet PO 25 mg BEDTIME PRN Administration Anxiety Lorazepam 1 mg 09/06/20 14:53 09/09/20 17:07 Lorazepam 1 Mg Tablet PO 1 mg Q4H PRN Administration anxiety, insomnia Lorazepam 0.5 mg 09/08/20 21:00 09/10/20 08:01 Lorazepam 0.5 Mg Tablet PO 0.5 mg BID LIAM Administration Magnesium Hydroxide 30 ml 09/04/20 16:34 Milk Of Magnesia 30 Ml Oral.Susp PO DAILY PRN Constipation Mirtazapine 15 mg 09/02/20 01:15 09/05/20 20:08 Mirtazapine 15 Mg Tablet PO 15 mg BEDTIME LIAM Administration Omeprazole 40 mg 09/02/20 06:30 09/10/20 06:14 Omeprazole 40 Mg Capsule.Dr PO 40 mg DAILY@0630 LIAM Administration Pharmacy Consult 1 each 09/01/20 20:25 Consult Rx Perform Med Rec MISCELLANE ONCE PRN Consult order Quetiapine Fumarate 25 mg 09/03/20 21:00 09/05/20 20:08 Quetiapine Fumarate 25 Mg Tablet PO 25 mg BEDTIME LIAM Administration Trazodone HCl 25 mg 09/05/20 15:33 09/05/20 20:10 Trazodone Hcl 25 Mg Halftab PO 25 mg QID PRN Administration Anxiety Allergies Allergies Allergy/AdvReac Type Severity Reaction Status Date / Time No Known Allergies Allergy Verified 07/02/20 12:21 Assessment & Plan Assessment & Plan (1) Altered mental status, unspecified: Status: Acute Code(s): R41.82 - Altered mental status, unspecified Assessment and Plan: Treat anxiety and insomnia with Lorazepam. We will have a family meeting to assess possibility of discharge to [facility]. (2) Pervasive developmental disorder: Status: Acute Code(s): F84.9 - Pervasive developmental disorder, unspecified Assessment and Plan: No new interventions at this time (3) Acute anxiety: Status: Acute Code(s): F41.9 - Anxiety disorder, unspecified Assessment and Plan: Continue Ativan (4) Chronic post-traumatic stress disorder: Status: Acute Code(s): F43.12 - Post-traumatic stress disorder, chronic Assessment and Plan: No new interventions at this moment. Greater than 50% of the session was spent on counseling and/or coordination of care Reason for contiued inpatient stay Substantial Risk for: inability to function and rapid decompensation
[2020-09-10 10:48] VITALS: BP 123/69; PULSE 102
[2020-09-10 10:49] VITALS: BP 116/69; PULSE 108
[2020-09-10] MEDS: LORazepam 1 MG TABLET PO (16:54)
[2020-09-10 20:01] VITALS: RESP 16; TEMP 36.4
[2020-09-11] MEDS: Omeprazole 40 MG CAPSULE.DR PO (05:40)
[2020-09-11 06:00] VITALS: BP 134/83; PULSE 111; RESP 20; TEMP 36.8; O2SAT 96
[2020-09-11] MEDS: LORazepam 0.5 MG TABLET PO ×2 (08:22→20:58)
--- NOTE | 2020-09-11 11:56 | P.PNPSI_ITS ---
Subjective Subjective Date of Service: 09/11/20 Reason For Visit: depression Subjective Notes: Conditional Voluntary Interim History: The patient is more visible in the unit. He misses his home and his cat and today, he was able to express himself better, more oriented. We had a short meeting with his sister who stated that Ariel looks much better, that he is very functional at baseline but he is not at baseline yet. He agreed to have again bloodwork, now with ammonia level, LFT, BMP, TSH. Medication Compliance: Yes Side effects from medications: No Attending Groups: Intermittent Review of Systems Review of Systems Yes all other systems are reviewed and are negative Mental Status Exam Mental Status Exam Patient Appearance: Well Grooomed Patient Orientation: Person, Place, Time and Situation Level of Consciousness: Awake and Appropriate Patient Behavior: Appropriate Mood Description: Calm and Withdrawn Affect Description: Calm and Constricted Patient Cognition Impaired: Yes Ability to Follow Directions: Good Speech Pattern: Clear Memory Description: Intact Hallucinations: None Delusions: Not Present Thought Process: Slowed Thinking Thought Content: positive for Intact Abnormal Motor Activity Signs and Symptoms: Tic Judgement: Fair Diagnostics Vital Signs (24Hr): Vital Signs - 24 hr 09/10/20 20:01 09/11/20 06:00 Temperature 97.5 F 98.3 F Pulse Rate 111 H Respiratory Rate 16 20 Blood Pressure 134/83 Pulse Oximetry 96 Body Mass Index 24.8 Labs Results: 09/03/20 05:25 09/08/20 07:43 Medications Medications Current Medications Generic Name Dose Route Start Last Admin Trade Name Freq PRN Reason Stop Dose Admin Acetaminophen 650 mg 09/04/20 16:34 Acetaminophen 325 Mg Tablet PO Q6H PRN Headache/Pain Mild Scale (1-3) Al Hydroxide/Mg Hydroxide 30 ml 09/04/20 16:34 Magnesium Hydrox/Alum Hydrox 30 Ml Oral.Susp PO Q6H PRN Heartburn/Nausea Hydroxyzine HCl 25 mg 09/04/20 16:34 09/05/20 02:55 Hydroxyzine Hcl 25 Mg Tablet PO 25 mg BEDTIME PRN Administration Anxiety Lorazepam 1 mg 09/06/20 14:53 09/10/20 16:54 Lorazepam 1 Mg Tablet PO 1 mg Q4H PRN Administration anxiety, insomnia Lorazepam 0.5 mg 09/08/20 21:00 09/11/20 08:22 Lorazepam 0.5 Mg Tablet PO 0.5 mg BID LIAM Administration Magnesium Hydroxide 30 ml 09/04/20 16:34 Milk Of Magnesia 30 Ml Oral.Susp PO DAILY PRN Constipation Mirtazapine 15 mg 09/02/20 01:15 09/05/20 20:08 Mirtazapine 15 Mg Tablet PO 15 mg BEDTIME LIAM Administration Omeprazole 40 mg 09/02/20 06:30 09/11/20 05:40 Omeprazole 40 Mg Capsule. PO 40 mg DAILY@0630 LIAM Administration Pharmacy Consult 1 each 09/01/20 20:25 Consult Rx Perform Med Rec MISCELLANE ONCE PRN Consult order Quetiapine Fumarate 25 mg 09/03/20 21:00 09/05/20 20:08 Quetiapine Fumarate 25 Mg Tablet PO 25 mg BEDTIME LIAM Administration Trazodone HCl 25 mg 09/05/20 15:33 09/05/20 20:10 Trazodone Hcl 25 Mg Halftab PO 25 mg QID PRN Administration Anxiety Allergies Allergies Allergy/AdvReac Type Severity Reaction Status Date / Time No Known Allergies Allergy Verified 07/02/20 12:21 Assessment & Plan Assessment & Plan (1) Altered mental status, unspecified: Status: Acute Code(s): R41.82 - Altered mental status, unspecified Assessment and Plan: Treat anxiety and insomnia with Lorazepam. We had a family meeting to assess possibility of discharge to [facility]. (2) Pervasive developmental disorder: Status: Acute Code(s): F84.9 - Pervasive developmental disorder, unspecified Assessment and Plan: No new interventions at this time (3) Acute anxiety: Status: Acute Code(s): F41.9 - Anxiety disorder, unspecified Assessment and Plan: [facility] (4) Chronic post-traumatic stress disorder: Status: Acute Code(s): F43.12 - Post-traumatic stress disorder, chronic Assessment and Plan: No new interventions at this moment. Greater than 50% of the session was spent on counseling and/or coordination of care Reason for contiued inpatient stay Substantial Risk for: inability to function and rapid decompensation
[2020-09-11 13:02] VITALS: BP 130/79; PULSE 94
[2020-09-11] MEDS: LORazepam 1 MG TABLET PO (14:26)
[2020-09-11 14:28] VITALS: BMI 24.6
[2020-09-11 19:35] VITALS: BP 133/72; PULSE 102; RESP 16; TEMP 36.6; O2SAT 97
[2020-09-11] MEDS: Milk of Magnesia 30 ML ORAL.SUSP PO (20:58)
[2020-09-12] MEDS: LORazepam 1 MG TABLET PO ×4 (01:07→20:02)
[2020-09-12 06:30] VITALS: BP 120/67; PULSE 118; RESP 18; TEMP 36.6; O2SAT 96
[2020-09-12] MEDS: Omeprazole 40 MG CAPSULE.DR PO (06:36)
[2020-09-12] MEDS: LORazepam 0.5 MG TABLET PO (08:29)
[2020-09-12 08:51] LABS: Ammonia 46 umol/L (13-55)
[2020-09-12 09:17] LABS: Alanine Aminotransferase 18 U/L (0-40); Albumin Level 3.4 g/dL (3.5-5.0); Alkaline Phosphatase 87 U/L (39-117); Anion Gap 10 (12-20); Aspartate Amino Transferase 14 U/L (5-37); Bilirubin Direct 0.2 mg/dL (0.0-0.5); Bilirubin Total 0.5 mg/dL (0.0-1.0); Blood Urea Nitrogen 16 mg/dL (9-16); Calcium 8.5 mg/dL (8.4-10.2); Carbon Dioxide 26 mmol/L (22-29); Chloride 110 mmol/L (96-108); Estimated Glomerular Filt Rate > 60; Glucose Fasting 113 mg/dL (60-99); Potassium 4.1 mmol/L (3.3-5.1); Sodium 142 mmol/L (135-145); Total Protein 5.9 g/dL (6.5-8.0)
[2020-09-12 09:25] LABS: Thyroid Stimulating Hormone 1.27 uIU/mL (0.32-4.0)
--- NOTE | 2020-09-12 10:51 | HO.PSYCHPN ---
Subjective Subjective Date of Service: 09/12/20 Reason For Visit: depression Subjective Notes: Conditional Voluntary Interim History: The patient slept poorly last night, he needed PRN Ativan. So far, he looks more oriented but very concrete, probably at his baseline but as per sister's report, he used to be more functional. Bloodwork came back normal, Medication Compliance: Yes Side effects from medications: No Attending Groups: No Review of Systems Review of Systems Yes all other systems are reviewed and are negative Mental Status Exam Mental Status Exam Patient Appearance: Well Grooomed Patient Orientation: Person and Situation Level of Consciousness: Awake and Appropriate Patient Behavior: Appropriate and Guarded Mood Description: Withdrawn Affect Description: Constricted Patient Cognition Impaired: Yes Ability to Follow Directions: Good Speech Pattern: Clear Memory Description: Intact Hallucinations: None Delusions: Not Present Thought Process: Slowed Thinking Thought Content: positive for Intact Judgement: Fair Diagnostics Vital Signs (24Hr): Vital Signs - 24 hr 09/11/20 13:02 09/11/20 19:35 09/12/20 06:30 Temperature 97.9 F 97.9 F Pulse Rate 94 102 H 118 H Respiratory Rate 16 18 Blood Pressure 130/79 133/72 120/67 Pulse Oximetry 97 96 Body Mass Index 24.6 Labs Results: 09/03/20 05:25 09/12/20 07:53 Labs: Laboratory Results - last 48 hr 09/12/20 09/12/20 07:52 07:53 Sodium 142 Potassium 4.1 Chloride 110 H Carbon Dioxide 26 Anion Gap 10 L BUN 16 Creatinine 0.71 Estim Creat Clear Calc 93.0 Estimated GFR > 60 Fasting Glucose 113 H Calcium 8.5 Total Bilirubin 0.5 Direct Bilirubin 0.2 AST 14 ALT 18 Alkaline Phosphatase 87 Ammonia 46 Total Protein 5.9 L Albumin 3.4 L TSH 1.27 Medications Medications Current Medications Generic Name Dose Route Start Last Admin Trade Name Freq PRN Reason Stop Dose Admin Acetaminophen 650 mg 09/04/20 16:34 Acetaminophen 325 Mg Tablet PO Q6H PRN Headache/Pain Mild Scale (1-3) Al Hydroxide/Mg Hydroxide 30 ml 09/04/20 16:34 Magnesium Hydrox/Alum Hydrox 30 Ml Oral.Susp PO Q6H PRN Heartburn/Nausea Hydroxyzine HCl 25 mg 09/04/20 16:34 09/05/20 02:55 Hydroxyzine Hcl 25 Mg Tablet PO 25 mg BEDTIME PRN Administration Anxiety Lorazepam 1 mg 09/06/20 14:53 09/12/20 06:36 Lorazepam 1 Mg Tablet PO 1 mg Q4H PRN Administration anxiety, insomnia Lorazepam 1 mg 09/12/20 21:00 Lorazepam 1 Mg Tablet PO BID LIAM Magnesium Hydroxide 30 ml 09/04/20 16:34 09/11/20 20:58 Milk Of Magnesia 30 Ml Oral.Susp PO 30 ml DAILY PRN Administration Constipation Mirtazapine 15 mg 09/02/20 01:15 09/05/20 20:08 Mirtazapine 15 Mg Tablet PO 15 mg BEDTIME LIAM Administration Omeprazole 40 mg 09/02/20 06:30 09/12/20 06:36 Omeprazole 40 Mg Capsule. PO 40 mg DAILY@0630 [facility] Administration Pharmacy Consult 1 each 09/01/20 20:25 Consult Rx Perform Med Rec MISCELLANE ONCE PRN Consult order Quetiapine Fumarate 25 mg 09/03/20 21:00 09/05/20 20:08 Quetiapine Fumarate 25 Mg Tablet PO 25 mg BEDTIME LIAM Administration Trazodone HCl 25 mg 09/05/20 15:33 09/05/20 20:10 Trazodone Hcl 25 Mg Halftab PO 25 mg QID PRN Administration Anxiety Allergies Allergies Allergy/AdvReac Type Severity Reaction Status Date / Time No Known Allergies Allergy Verified 07/02/20 12:21 Assessment & Plan Assessment & Plan (1) Altered mental status, unspecified: Status: Acute Code(s): R41.82 - Altered mental status, unspecified Assessment and Plan: Treat anxiety and insomnia with Lorazepam. We had a family meeting to assess possibility of discharge to [facility]. (2) Pervasive developmental disorder: Status: Acute Code(s): F84.9 - Pervasive developmental disorder, unspecified Assessment and Plan: No new interventions at this time (3) Acute anxiety: Status: Acute Code(s): F41.9 - Anxiety disorder, unspecified Assessment and Plan: Continue Ativan (4) Chronic post-traumatic stress disorder: Status: Acute Code(s): F43.12 - Post-traumatic stress disorder, chronic Assessment and Plan: No new interventions at this moment. Greater than 50% of the session was spent on counseling and/or coordination of care Reason for contiued inpatient stay Substantial Risk for: med/psych decompensation
[2020-09-12 18:00] VITALS: BP 118/62; PULSE 98; RESP 16; TEMP 36.9; O2SAT 100
[2020-09-13] MEDS: Omeprazole 40 MG CAPSULE.DR PO (06:26)
[2020-09-13 06:45] VITALS: BP 115/55; PULSE 87; TEMP 36.8
[2020-09-13] MEDS: LORazepam 1 MG TABLET PO ×3 (08:20→20:47)
[2020-09-13] MEDS: Magnesium Hydrox/Alum Hydrox 30 ML ORAL.SUSP PO (16:16)
--- NOTE | 2020-09-13 16:48 | P.PNPSI_ITS ---
Subjective Subjective Date of Service: 09/13/20 Reason For Visit: depression Subjective Notes: Conditional Voluntary Interim History: Arile was pleasant and was in behavioral control. He had no immediate concerns. He seeks out help appropriately. Medication Compliance: Yes Side effects from medications: No Attending Groups: No Review of Systems Acute medical concerns: No Medical Review of Systems: unchanged Mental Status Exam Mental Status Exam Patient Appearance: Well Grooomed Patient Orientation: Person and Situation Level of Consciousness: Awake and Appropriate Patient Behavior: Appropriate and Guarded Mood Description: Withdrawn Affect Description: Constricted Patient Cognition Impaired: Yes Ability to Follow Directions: Good Speech Pattern: Clear Memory Description: Intact Hallucinations: None Delusions: Not Present Thought Process: Slowed Thinking Thought Content: positive for Intact, negative for Suicidal Ideation and negative for Homicidal Ideation Judgement: Fair Diagnostics Vital Signs (24Hr): Vital Signs - 24 hr 09/12/20 18:00 09/13/20 06:45 Temperature 98.5 F 98.2 F Pulse Rate 98 87 Respiratory Rate 16 Blood Pressure 118/62 115/55 L Pulse Oximetry 100 Body Mass Index 24.6 Labs Results: 09/03/20 05:25 09/12/20 07:53 Labs: Laboratory Results - last 48 hr 09/12/20 09/12/20 07:52 07:53 Sodium 142 Potassium 4.1 Chloride 110 H Carbon Dioxide 26 Anion Gap 10 L BUN 16 Creatinine 0.71 Estim Creat Clear Calc 93.0 Estimated GFR > 60 Fasting Glucose 113 H Calcium 8.5 Total Bilirubin 0.5 Direct Bilirubin 0.2 AST 14 ALT 18 Alkaline Phosphatase 87 Ammonia 46 Total Protein 5.9 L Albumin 3.4 L TSH 1.27 Medications Medications Current Medications Generic Name Dose Route Start Last Admin Trade Name Freq PRN Reason Stop Dose Admin Acetaminophen 650 mg 09/04/20 16:34 Acetaminophen 325 Mg Tablet PO Q6H PRN Headache/Pain Mild Scale (1-3) Al Hydroxide/Mg Hydroxide 30 ml 09/04/20 16:34 09/13/20 16:16 Magnesium Hydrox/Alum Hydrox 30 Ml Oral.Susp PO 30 ml Q6H PRN Administration Heartburn/Nausea Hydroxyzine HCl 25 mg 09/04/20 16:34 09/05/20 02:55 Hydroxyzine Hcl 25 Mg Tablet PO 25 mg BEDTIME PRN Administration Anxiety Lorazepam 1 mg 09/06/20 14:53 09/13/20 14:13 Lorazepam 1 Mg Tablet PO 1 mg Q4H PRN Administration anxiety, insomnia Lorazepam 1 mg 09/12/20 21:00 09/13/20 08:20 Lorazepam 1 Mg Tablet PO 1 mg BID LIAM Administration Magnesium Hydroxide 30 ml 09/04/20 16:34 09/11/20 20:58 Milk Of Magnesia 30 Ml Oral.Susp PO 30 ml DAILY PRN Administration Constipation Mirtazapine 15 mg 09/02/20 01:15 09/05/20 20:08 Mirtazapine 15 Mg Tablet PO 15 mg BEDTIME LIAM Administration Omeprazole 40 mg 09/02/20 06:30 09/13/20 06:26 Omeprazole 40 Mg Capsule. PO 40 mg DAILY@0630 [facility] Administration Pharmacy Consult 1 each 09/01/20 20:25 Consult Rx Perform Med Rec MISCELLANE ONCE PRN Consult order Quetiapine Fumarate 25 mg 09/03/20 21:00 09/05/20 20:08 Quetiapine Fumarate 25 Mg Tablet PO 25 mg BEDTIME LIAM Administration Trazodone HCl 25 mg 09/05/20 15:33 09/05/20 20:10 Trazodone Hcl 25 Mg Halftab PO 25 mg QID PRN Administration Anxiety Allergies Allergies Allergy/AdvReac Type Severity Reaction Status Date / Time No Known Allergies Allergy Verified 07/02/20 12:21 Assessment & Plan Assessment & Plan (1) Altered mental status, unspecified: Status: Acute Code(s): R41.82 - Altered mental status, unspecified (2) Pervasive developmental disorder: Status: Acute Code(s): F84.9 - Pervasive developmental disorder, unspecified (3) Acute anxiety: Status: Acute Code(s): F41.9 - Anxiety disorder, unspecified (4) Chronic post-traumatic stress disorder: Status: Acute Code(s): F43.12 - Post-traumatic stress disorder, chronic Assessment and Plan: Treat anxiety and insomnia with Lorazepam. We had a family meeting to assess possibility of discharge [facility]. No new interventions at this time Continue Ativan No new interventions at this moment. Continue treatment plan without change. Greater than 50% of the session was spent on counseling and/or coordination of care Reason for contiued inpatient stay Substantial Risk for: inability to function and rapid decompensation
[2020-09-13 19:40] VITALS: BP 141/79; PULSE 104; TEMP 36.4
[2020-09-14 06:00] VITALS: BP 118/68; PULSE 119; RESP 18; TEMP 37.3; O2SAT 96
[2020-09-14] MEDS: Omeprazole 40 MG CAPSULE.DR PO (06:21)
[2020-09-14] MEDS: LORazepam 1 MG TABLET PO ×2 (08:59→20:31)
--- NOTE | 2020-09-14 17:27 | HO.PSYCHPN ---
Subjective Subjective Date of Service: 09/14/20 Reason For Visit: depression Subjective Notes: Conditional Voluntary Interim History: Ariel remains in good behavioral control There are no immediate concerns Medication Compliance: Yes Side effects from medications: No Attending Groups: No Review of Systems Acute medical concerns: No Medical Review of Systems: unchanged Mental Status Exam Mental Status Exam Patient Appearance: Well Grooomed Patient Orientation: Person and Situation Level of Consciousness: Awake and Appropriate Patient Behavior: Appropriate and Guarded Mood Description: Withdrawn Affect Description: Constricted Patient Cognition Impaired: Yes Ability to Follow Directions: Good Speech Pattern: Clear Memory Description: Intact Hallucinations: None Delusions: Not Present Thought Process: Slowed Thinking Thought Content: positive for Intact, negative for Suicidal Ideation and negative for Homicidal Ideation Judgement: Fair Diagnostics Vital Signs (24Hr): Vital Signs - 24 hr 09/13/20 19:40 09/14/20 06:00 Temperature 97.6 F 99.2 F Pulse Rate 104 H 119 H Respiratory Rate 18 Blood Pressure 141/79 H 118/68 Pulse Oximetry 96 Body Mass Index 24.6 Labs Results: 09/03/20 05:25 09/12/20 07:53 Medications Medications Current Medications Generic Name Dose Route Start Last Admin Trade Name Freq PRN Reason Stop Dose Admin Acetaminophen 650 mg 09/04/20 16:34 Acetaminophen 325 Mg Tablet PO Q6H PRN Headache/Pain Mild Scale (1-3) Al Hydroxide/Mg Hydroxide 30 ml 09/04/20 16:34 09/13/20 16:16 Magnesium Hydrox/Alum Hydrox 30 Ml Oral.Susp PO 30 ml Q6H PRN Administration Heartburn/Nausea Hydroxyzine HCl 25 mg 09/04/20 16:34 09/05/20 02:55 Hydroxyzine Hcl 25 Mg Tablet PO 25 mg BEDTIME PRN Administration Anxiety Lorazepam 1 mg 09/06/20 14:53 09/13/20 14:13 Lorazepam 1 Mg Tablet PO 1 mg Q4H PRN Administration anxiety, insomnia Lorazepam 1 mg 09/12/20 21:00 09/14/20 08:59 Lorazepam 1 Mg Tablet PO 1 mg BID LIAM Administration Magnesium Hydroxide 30 ml 09/04/20 16:34 09/11/20 20:58 Milk Of Magnesia 30 Ml Oral.Susp PO 30 ml DAILY PRN Administration Constipation Mirtazapine 15 mg 09/02/20 01:15 09/05/20 20:08 Mirtazapine 15 Mg Tablet PO 15 mg BEDTIME LIAM Administration Omeprazole 40 mg 09/02/20 06:30 09/14/20 06:21 Omeprazole 40 Mg Capsule. PO 40 mg DAILY@0630 [facility] Administration Pharmacy Consult 1 each 09/01/20 20:25 Consult Rx Perform Med Rec MISCELLANE ONCE PRN Consult order Quetiapine Fumarate 25 mg 09/03/20 21:00 09/05/20 20:08 Quetiapine Fumarate 25 Mg Tablet PO 25 mg BEDTIME LIAM Administration Trazodone HCl 25 mg 09/05/20 15:33 09/05/20 20:10 Trazodone Hcl 25 Mg Halftab PO 25 mg QID PRN Administration Anxiety Allergies Allergies Allergy/AdvReac Type Severity Reaction Status Date / Time No Known Allergies Allergy Verified 07/02/20 12:21 Assessment & Plan Assessment & Plan (1) Altered mental status, unspecified: Status: Acute Code(s): R41.82 - Altered mental status, unspecified (2) Pervasive developmental disorder: Status: Acute Code(s): F84.9 - Pervasive developmental disorder, unspecified (3) Acute anxiety: Status: Acute Code(s): F41.9 - Anxiety disorder, unspecified (4) Chronic post-traumatic stress disorder: Status: Acute Code(s): F43.12 - Post-traumatic stress disorder, chronic Assessment and Plan: Treat anxiety and insomnia with Lorazepam. We had a family meeting to assess possibility of [facility]. No new interventions at this time Continue Ativan No new interventions at this moment. Continue treatment plan without change. Greater than 50% of the session was spent on counseling and/or coordination of care Patient educated on: diagnosis and medication risk/benefits Informed Consent: further education needed Reason for contiued inpatient stay Substantial Risk for: inability to function
[2020-09-14 18:00] VITALS: BP 138/74; PULSE 98; TEMP 36.5
[2020-09-15] MEDS: LORazepam 1 MG TABLET PO ×5 (02:28→22:20)
[2020-09-15 06:50] VITALS: BP 120/70; PULSE 95; RESP 18; TEMP 36.6; O2SAT 99
[2020-09-15] MEDS: Omeprazole 40 MG CAPSULE.DR PO (06:56)
--- NOTE | 2020-09-15 14:17 | P.PNPSI_ITS ---
Subjective Subjective Date of Service: 09/15/20 Reason For Visit: depression Interim History: The patient was a little more anxious over the weekend since his sister couldn't visit him on Tuesday and he was tearful. No evidence of delirium but it seems that his functionality has decreased since he needs prompts for ADL's when at baseline, at home, he does them by himself. Medication Compliance: Yes Side effects from medications: No Attending Groups: No Review of Systems Review of Systems Yes all other systems are reviewed and are negative Mental Status Exam Mental Status Exam Patient Appearance: Well Grooomed Patient Orientation: Person and Place Level of Consciousness: Awake Patient Behavior: Guarded Mood Description: Withdrawn Affect Description: Calm Patient Cognition Impaired: Yes Ability to Follow Directions: Good Speech Pattern: Clear Memory Description: Intact Hallucinations: None Delusions: Not Present Thought Process: Goal Oriented (concrete) Thought Content: positive for [place] Judgement: Fair Diagnostics Vital Signs (24Hr): Vital Signs - 24 hr 09/14/20 18:00 09/15/20 06:50 Temperature 97.7 F 97.9 F Pulse Rate 98 95 Respiratory Rate 18 Blood Pressure 138/74 120/70 Pulse Oximetry 99 Body Mass Index 24.6 Labs Results: 09/03/20 05:25 09/12/20 07:53 Medications Medications Current Medications Generic Name Dose Route Start Last Admin Trade Name Freq PRN Reason Stop Dose Admin Acetaminophen 650 mg 09/04/20 16:34 Acetaminophen 325 Mg Tablet PO Q6H PRN Headache/Pain Mild Scale (1-3) Al Hydroxide/Mg Hydroxide 30 ml 09/04/20 16:34 09/13/20 16:16 Magnesium Hydrox/Alum Hydrox 30 Ml Oral.Susp PO 30 ml Q6H PRN Administration Heartburn/Nausea Hydroxyzine HCl 25 mg 09/04/20 16:34 09/05/20 02:55 Hydroxyzine Hcl 25 Mg Tablet PO 25 mg BEDTIME PRN Administration Anxiety Lorazepam 1 mg 09/06/20 14:53 09/15/20 02:28 Lorazepam 1 Mg Tablet PO 1 mg Q4H PRN Administration anxiety, insomnia Lorazepam 1 mg 09/12/20 21:00 09/15/20 08:20 Lorazepam 1 Mg Tablet PO 1 mg BID LIAM Administration Magnesium Hydroxide 30 ml 09/04/20 16:34 09/11/20 20:58 Milk Of Magnesia 30 Ml Oral.Susp PO 30 ml DAILY PRN Administration Constipation Mirtazapine 15 mg 09/02/20 01:15 09/05/20 20:08 Mirtazapine 15 Mg Tablet PO 15 mg BEDTIME LIAM Administration Omeprazole 40 mg 09/02/20 06:30 09/15/20 06:56 Omeprazole 40 Mg Capsule.Dr PO 40 mg DAILY@0630 [facility] Administration Pharmacy Consult 1 each 09/01/20 20:25 Consult Rx Perform Med Rec MISCELLANE ONCE PRN Consult order Quetiapine Fumarate 25 mg 09/03/20 21:00 09/05/20 20:08 Quetiapine Fumarate 25 Mg Tablet PO 25 mg BEDTIME LIAM Administration Trazodone HCl 25 mg 09/05/20 15:33 09/05/20 20:10 Trazodone Hcl 25 Mg Halftab PO 25 mg QID PRN Administration Anxiety Allergies Allergies Allergy/AdvReac Type Severity Reaction Status Date / Time No Known Allergies Allergy Verified 07/02/20 12:21 Assessment & Plan Assessment & Plan (1) Altered mental status, unspecified: Status: Acute Code(s): R41.82 - Altered mental status, unspecified (2) Pervasive developmental disorder: Status: Acute Code(s): F84.9 - Pervasive developmental disorder, unspecified (3) Acute anxiety: Status: Acute Code(s): F41.9 - Anxiety disorder, unspecified (4) Chronic post-traumatic stress disorder: Status: Acute Code(s): F43.12 - Post-traumatic stress disorder, chronic Assessment and Plan: Treat anxiety and insomnia with Lorazepam. We had a family meeting to assess possibility of [facility]. Now since his functionality has not improved, we will try to discharge him [facility]. No new interventions at this time Continue Ativan Greater than 50% of the session was spent on counseling and/or coordination of care Reason for contiued inpatient stay Substantial Risk for: rapid decompensation
[2020-09-15 18:00] VITALS: BP 135/70; PULSE 87; TEMP 36.3
[2020-09-16] MEDS: LORazepam 1 MG TABLET PO ×5 (03:40→20:17)
[2020-09-16 03:45] VITALS: BP 123/76; PULSE 112; RESP 16; TEMP 37.1; O2SAT 98
[2020-09-16] MEDS: Omeprazole 40 MG CAPSULE.DR PO (06:15)
--- NOTE | 2020-09-16 10:30 | P.PNPSI_ITS ---
Subjective Subjective Date of Service: 09/16/20 Reason For Visit: depression Subjective Notes: Conditional Voluntary Interim History: The patient has showed desinhibited and regressional behavior yesterday in the family meeting. NO evidence of delirium at this moment but he seems a little more intrussive. Medication Compliance: Yes Side effects from medications: No Attending Groups: Intermittent Review of Systems Review of Systems Yes all other systems are reviewed and are negative Mental Status Exam Mental Status Exam Patient Appearance: Well Grooomed Patient Orientation: Person, Place and Situation Level of Consciousness: Awake Patient Behavior: Cooperative Mood Description: Calm Affect Description: Calm Patient Cognition Impaired: Yes Ability to Follow Directions: Good Speech Pattern: Clear Memory Description: Intact Hallucinations: None Delusions: Not Present Thought Process: Slowed Thinking Thought Content: positive for [place] Judgement: Fair Diagnostics Vital Signs (24Hr): Vital Signs - 24 hr 09/15/20 18:00 09/16/20 03:45 Temperature 97.3 F 98.8 F Pulse Rate 87 112 H Respiratory Rate 16 Blood Pressure 135/70 123/76 Pulse Oximetry 98 Body Mass Index 24.6 Labs Results: 09/03/20 05:25 09/12/20 07:53 Medications Medications Current Medications Generic Name Dose Route Start Last Admin Trade Name Freq PRN Reason Stop Dose Admin Acetaminophen 650 mg 09/04/20 16:34 Acetaminophen 325 Mg Tablet PO Q6H PRN Headache/Pain Mild Scale (1-3) Al Hydroxide/Mg Hydroxide 30 ml 09/04/20 16:34 09/13/20 16:16 Magnesium Hydrox/Alum Hydrox 30 Ml Oral.Susp PO 30 ml Q6H PRN Administration Heartburn/Nausea Hydroxyzine HCl 25 mg 09/04/20 16:34 09/05/20 02:55 Hydroxyzine Hcl 25 Mg Tablet PO 25 mg BEDTIME PRN Administration Anxiety Lorazepam 1 mg 09/06/20 14:53 09/16/20 03:40 Lorazepam 1 Mg Tablet PO 1 mg Q4H PRN Administration anxiety, insomnia Lorazepam 1 mg 09/12/20 21:00 09/16/20 08:16 Lorazepam 1 Mg Tablet PO 1 mg BID LIAM Administration Magnesium Hydroxide 30 ml 09/04/20 16:34 09/11/20 20:58 Milk Of Magnesia 30 Ml Oral.Susp PO 30 ml DAILY PRN Administration Constipation Omeprazole 40 mg 09/02/20 06:30 09/16/20 06:15 Omeprazole 40 Mg Capsule. PO 40 mg DAILY@0630 [facility] Administration Pharmacy Consult 1 each 09/01/20 20:25 Consult Rx Perform Med Rec MISCELLANE ONCE PRN Consult order Quetiapine Fumarate 25 mg 09/03/20 21:00 09/05/20 20:08 Quetiapine Fumarate 25 Mg Tablet PO 25 mg BEDTIME [facility] Administration Allergies Allergies Allergy/AdvReac Type Severity Reaction Status Date / Time No Known Allergies Allergy Verified 07/02/20 12:21 Assessment & Plan Assessment & Plan (1) Altered mental status, unspecified: Status: Acute Code(s): R41.82 - Altered mental status, unspecified (2) Pervasive developmental disorder: Status: Acute Code(s): F84.9 - Pervasive developmental disorder, unspecified (3) Acute anxiety: Status: Acute Code(s): F41.9 - Anxiety disorder, unspecified (4) Chronic post-traumatic stress disorder: Status: Acute Code(s): F43.12 - Post-traumatic stress disorder, chronic Assessment and Plan: Treat anxiety and insomnia with Lorazepam. We had a family meeting to assess possibility of [facility]. Now since his functionality has not improved, we will try to discharge him to [facility]. It seems that this is his new normal. No new interventions at this time Continue Ativan Greater than 50% of the session was spent on counseling and/or coordination of care Reason for contiued inpatient stay Substantial Risk for: inability to function and rapid decompensation
[2020-09-16 16:10] VITALS: BP 111/69; PULSE 110; TEMP 36.7
[2020-09-17 06:00] VITALS: BP 109/64; PULSE 123; RESP 20; TEMP 35.5; O2SAT 96
[2020-09-17] MEDS: Omeprazole 40 MG CAPSULE.DR PO (06:26)
[2020-09-17] MEDS: LORazepam 1 MG TABLET PO ×3 (08:39→20:22)
--- NOTE | 2020-09-17 09:56 | P.PNPSI_ITS ---
Subjective Subjective Date of Service: 09/17/20 Reason For Visit: depression Subjective Notes: Conditional Voluntary Interim History: The patient remains pleasant, cooperative but anxious. He has shown some desinhibition and regressive behavior a few days ago. He agreed to start a low dose of Zoloft. Medication Compliance: Yes Side effects from medications: No Attending Groups: No Review of Systems Review of Systems Yes all other systems are reviewed and are negative Mental Status Exam Mental Status Exam Patient Appearance: Well Grooomed Patient Orientation: Person and Situation Level of Consciousness: Awake Patient Behavior: Guarded Mood Description: Calm Affect Description: Withdrawn and Depressed Patient Cognition Impaired: Yes Ability to Follow Directions: Good Speech Pattern: Clear Memory Description: Intact Hallucinations: None Delusions: Not Present Thought Process: Slowed Thinking Thought Content: positive for [place] Depressive Symptoms: Crying Spells Judgement: Fair Diagnostics Vital Signs (24Hr): Vital Signs - 24 hr 09/16/20 16:10 09/17/20 06:00 Temperature 98.1 F 96 F L Pulse Rate 110 H 123 H Respiratory Rate 20 Blood Pressure 111/69 109/64 Pulse Oximetry 96 Body Mass Index 24.6 Labs Results: 09/03/20 05:25 09/12/20 07:53 Medications Medications Current Medications Generic Name Dose Route Start Last Admin Trade Name Freq PRN Reason Stop Dose Admin Acetaminophen 650 mg 09/04/20 16:34 Acetaminophen 325 Mg Tablet PO Q6H PRN Headache/Pain Mild Scale (1-3) Al Hydroxide/Mg Hydroxide 30 ml 09/04/20 16:34 09/13/20 16:16 Magnesium Hydrox/Alum Hydrox 30 Ml Oral.Susp PO 30 ml Q6H PRN Administration Heartburn/Nausea Hydroxyzine HCl 25 mg 09/04/20 16:34 09/05/20 02:55 Hydroxyzine Hcl 25 Mg Tablet PO 25 mg BEDTIME PRN Administration Anxiety Lorazepam 1 mg 09/06/20 14:53 09/16/20 16:06 Lorazepam 1 Mg Tablet PO 1 mg Q4H PRN Administration anxiety, insomnia Lorazepam 1 mg 09/12/20 21:00 09/17/20 08:39 Lorazepam 1 Mg Tablet PO 1 mg BID LIAM Administration Magnesium Hydroxide 30 ml 09/04/20 16:34 09/11/20 20:58 Milk Of Magnesia 30 Ml Oral.Susp PO 30 ml DAILY PRN Administration Constipation Omeprazole 40 mg 09/02/20 06:30 09/17/20 06:26 Omeprazole 40 Mg Capsule. PO 40 mg DAILY@0630 [facility] Administration Pharmacy Consult 1 each 09/01/20 20:25 Consult Rx Perform Med Rec MISCELLANE ONCE PRN Consult order Quetiapine Fumarate 25 mg 09/03/20 21:00 09/05/20 20:08 Quetiapine Fumarate 25 Mg Tablet PO 25 mg BEDTIME LIAM Administration Sertraline HCl 25 mg 09/17/20 09:15 Sertraline Hcl 25 Mg Tablet PO DAILY [facility] Allergies Allergies Allergy/AdvReac Type Severity Reaction Status Date / Time No Known Allergies Allergy Verified 07/02/20 12:21 Assessment & Plan Assessment & Plan (1) Altered mental status, unspecified: Status: Acute Code(s): R41.82 - Altered mental status, unspecified (2) Pervasive developmental disorder: Status: Acute Code(s): F84.9 - Pervasive developmental disorder, unspecified (3) Acute anxiety: Status: Acute Code(s): F41.9 - Anxiety disorder, unspecified (4) Chronic post-traumatic stress disorder: Status: Acute Code(s): F43.12 - Post-traumatic stress disorder, chronic Assessment and Plan: Treat anxiety and insomnia with Lorazepam. We had a family meeting to assess possibility of [facility]. Now since his functionality has not improved, we will try to discharge him to [facility], unfortunately a bed will be available on September 21 or . It seems that this is his new normal. No new interventions at this time Continue Ativan Start Zoloft 25 mg po qam to target anxiety and dysphoria Greater than 50% of the session was spent on counseling and/or coordination of care Reason for contiued inpatient stay Substantial Risk for: harm to self, inability to function and med/psych decompensation
[2020-09-17] MEDS: Sertraline HCL 25 MG TABLET PO (11:09)
[2020-09-17 18:00] VITALS: BP 120/64; PULSE 80; TEMP 36.6
[2020-09-18 06:00] VITALS: BP 102/56; PULSE 93; RESP 20; TEMP 36.7; O2SAT 96
[2020-09-18] MEDS: Omeprazole 40 MG CAPSULE.DR PO (06:09)
[2020-09-18 07:00] VITALS: BMI 25.9
[2020-09-18] MEDS: Sertraline HCL 25 MG TABLET PO (08:47)
[2020-09-18] MEDS: Acetaminophen 325 MG TABLET 650 MG PO (08:47)
[2020-09-18] MEDS: LORazepam 1 MG TABLET PO ×2 (08:48→20:15)
--- NOTE | 2020-09-18 10:07 | HO.PSYCHPN ---
Subjective Subjective Date of Service: 09/18/20 Reason For Visit: depression Subjective Notes: Conditional Voluntary Interim History: The patient remains dysphoric at times, no evidence of confusion or delirium with Zoloft started yesterday. Medication Compliance: Yes Side effects from medications: No Attending Groups: No Review of Systems Acute medical concerns: No Medical Review of Systems: unchanged Mental Status Exam Mental Status Exam Patient Appearance: Well Grooomed (on hospital gowns) Patient Orientation: Person and Situation Level of Consciousness: Awake and Appropriate Patient Behavior: Appropriate Mood Description: Calm and Withdrawn Affect Description: Constricted and Sad Patient Cognition Impaired: Yes Ability to Follow Directions: Good Speech Pattern: Clear Memory Description: Intact Hallucinations: None Delusions: Not Present Thought Process: Goal Oriented Thought Content: positive for [place] Judgement: Fair Diagnostics Vital Signs (24Hr): Vital Signs - 24 hr 09/17/20 18:00 09/18/20 06:00 Temperature 97.9 F 98.1 F Pulse Rate 80 93 Respiratory Rate 20 Blood Pressure 120/64 102/56 L Pulse Oximetry 96 Body Mass Index 24.6 Labs Results: 09/03/20 05:25 09/12/20 07:53 Medications Medications Current Medications Generic Name Dose Route Start Last Admin Trade Name Freq PRN Reason Stop Dose Admin Acetaminophen 650 mg 09/04/20 16:34 09/18/20 08:47 Acetaminophen 325 Mg Tablet PO 650 mg Q6H PRN Administration Headache/Pain Mild Scale (1-3) Al Hydroxide/Mg Hydroxide 30 ml 09/04/20 16:34 09/13/20 16:16 Magnesium Hydrox/Alum Hydrox 30 Ml Oral.Susp PO 30 ml Q6H PRN Administration Heartburn/Nausea Hydroxyzine HCl 25 mg 09/04/20 16:34 09/05/20 02:55 Hydroxyzine Hcl 25 Mg Tablet PO 25 mg BEDTIME PRN Administration Anxiety Lorazepam 1 mg 09/06/20 14:53 09/17/20 17:18 Lorazepam 1 Mg Tablet PO 1 mg Q4H PRN Administration anxiety, insomnia Lorazepam 1 mg 09/12/20 21:00 09/18/20 08:48 Lorazepam 1 Mg Tablet PO 1 mg BID LIAM Administration Magnesium Hydroxide 30 ml 09/04/20 16:34 09/11/20 20:58 Milk Of Magnesia 30 Ml Oral.Susp PO 30 ml DAILY PRN Administration Constipation Omeprazole 40 mg 09/02/20 06:30 09/18/20 06:09 Omeprazole 40 Mg Capsule. PO 40 mg DAILY@0630 [facility] Administration Pharmacy Consult 1 each 09/01/20 20:25 Consult Rx Perform Med Rec MISCELLANE ONCE PRN Consult order Sertraline HCl 25 mg 09/17/20 09:15 09/18/20 08:47 Sertraline Hcl 25 Mg Tablet PO 25 mg DAILY [facility] Administration Allergies Allergies Allergy/AdvReac Type Severity Reaction Status Date / Time No Known Allergies Allergy Verified 07/02/20 12:21 Assessment & Plan Assessment & Plan (1) Altered mental status, unspecified: Status: Acute Code(s): R41.82 - Altered mental status, unspecified (2) Pervasive developmental disorder: Status: Acute Code(s): F84.9 - Pervasive developmental disorder, unspecified (3) Acute anxiety: Status: Acute Code(s): F41.9 - Anxiety disorder, unspecified (4) Chronic post-traumatic stress disorder: Status: Acute Code(s): F43.12 - Post-traumatic stress disorder, chronic Assessment and Plan: Treat anxiety and insomnia with Lorazepam. We had a family meeting to assess possibility of [facility]. Now since his functionality has not improved, we will try to discharge him [facility], unfortunately a bed will be available on September 21 or . It seems that this is his new normal. No new interventions at this time Continue Ativan Start Zoloft 25 mg po qam to target anxiety and dysphoria Greater than 50% of the session was spent on counseling and/or coordination of care Reason for contiued inpatient stay Substantial Risk for: harm to self, harm to others, inability to function, rapid decompensation and med/psych decompensation
[2020-09-18 17:49] VITALS: BP 138/69; PULSE 84; RESP 16; TEMP 36.9; O2SAT 96
[2020-09-19] MEDS: Omeprazole 40 MG CAPSULE.DR PO (05:45)
[2020-09-19] MEDS: LORazepam 1 MG TABLET PO ×4 (05:45→21:24)
[2020-09-19 05:46] VITALS: BP 134/77; PULSE 96; RESP 20; TEMP 37.1; O2SAT 99
[2020-09-19] MEDS: Sertraline HCL 25 MG TABLET PO (08:40)
--- NOTE | 2020-09-19 11:12 | P.PNPSI_ITS ---
Subjective Subjective Date of Service: 09/19/20 Reason For Visit: depression Subjective Notes: Conditional Voluntary Interim History: The patient has been more visible in the unit, less dysphoric, still anxious. Medication Compliance: Yes Side effects from medications: No Attending Groups: No Review of Systems Acute medical concerns: No Medical Review of Systems: unchanged Mental Status Exam Mental Status Exam Patient Appearance: Well Grooomed Patient Orientation: Person, Place, Time and Situation Level of Consciousness: Awake Patient Behavior: Appropriate and Guarded Mood Description: Calm Affect Description: Constricted Patient Cognition Impaired: Yes Ability to Follow Directions: Good Speech Pattern: Clear Memory Description: Intact Hallucinations: None Delusions: Not Present Thought Process: Goal Oriented Thought Content: positive for Intact Judgement: Fair Diagnostics Vital Signs (24Hr): Vital Signs - 24 hr 09/18/20 17:49 09/19/20 05:46 Temperature 98.4 F 98.7 F Pulse Rate 84 96 Respiratory Rate 16 20 Blood Pressure 138/69 134/77 Pulse Oximetry 96 99 Body Mass Index 25.9 Labs Results: 09/03/20 05:25 09/12/20 07:53 Medications Medications Current Medications Generic Name Dose Route Start Last Admin Trade Name Freq PRN Reason Stop Dose Admin Acetaminophen 650 mg 09/04/20 16:34 09/18/20 08:47 Acetaminophen 325 Mg Tablet PO 650 mg Q6H PRN Administration Headache/Pain Mild Scale (1-3) Al Hydroxide/Mg Hydroxide 30 ml 09/04/20 16:34 09/13/20 16:16 Magnesium Hydrox/Alum Hydrox 30 Ml Oral.Susp PO 30 ml Q6H PRN Administration Heartburn/Nausea Hydroxyzine HCl 25 mg 09/04/20 16:34 09/05/20 02:55 Hydroxyzine Hcl 25 Mg Tablet PO 25 mg BEDTIME PRN Administration Anxiety Lorazepam 1 mg 09/06/20 14:53 09/19/20 05:45 Lorazepam 1 Mg Tablet PO 1 mg Q4H PRN Administration anxiety, insomnia Lorazepam 1 mg 09/12/20 21:00 09/19/20 08:40 Lorazepam 1 Mg Tablet PO 1 mg BID LIAM Administration Magnesium Hydroxide 30 ml 09/04/20 16:34 09/11/20 20:58 Milk Of Magnesia 30 Ml Oral.Susp PO 30 ml DAILY PRN Administration Constipation Omeprazole 40 mg 09/02/20 06:30 09/19/20 05:45 Omeprazole 40 Mg Capsule. PO 40 mg DAILY@0630 [facility] Administration Pharmacy Consult 1 each 09/01/20 20:25 Consult Rx Perform Med Rec MISCELLANE ONCE PRN Consult order Sertraline HCl 25 mg 09/17/20 09:15 09/19/20 08:40 Sertraline Hcl 25 Mg Tablet PO 25 mg DAILY LIAM Administration Allergies Allergies Allergy/AdvReac Type Severity Reaction Status Date / Time No Known Allergies Allergy Verified 07/02/20 12:21 Assessment & Plan Assessment & Plan (1) Altered mental status, unspecified: Status: Acute Code(s): R41.82 - Altered mental status, unspecified (2) Pervasive developmental disorder: Status: Acute Code(s): F84.9 - Pervasive developmental disorder, unspecified (3) Acute anxiety: Status: Acute Code(s): F41.9 - Anxiety disorder, unspecified (4) Chronic post-traumatic stress disorder: Status: Acute Code(s): F43.12 - Post-traumatic stress disorder, chronic Assessment and Plan: Treat anxiety and insomnia with Lorazepam. We had a family meeting to assess possibility of [facility]. Now since his functionality has not improved, we will try to discharge him [facility], unfortunately a bed will be available on September 21 or . It seems that this is his new normal. No new interventions at this time Continue Ativan Start Zoloft 25 mg po qam to target anxiety and dysphoria Greater than 50% of the session was spent on counseling and/or coordination of care Reason for contiued inpatient stay Substantial Risk for: inability to function and rapid decompensation
[2020-09-19 19:05] VITALS: BP 131/72; PULSE 91; TEMP 36.6
[2020-09-20 06:05] VITALS: BP 118/70; PULSE 112; RESP 16; TEMP 37.3; O2SAT 97
[2020-09-20] MEDS: LORazepam 1 MG TABLET PO ×5 (06:12→22:00)
[2020-09-20] MEDS: Omeprazole 40 MG CAPSULE.DR PO (06:12)
[2020-09-20] MEDS: Sertraline HCL 25 MG TABLET PO (08:17)
[2020-09-20 16:35] VITALS: BP 144/74; PULSE 75; TEMP 36.8
--- NOTE | 2020-09-20 22:29 | HO.PSYCHPN ---
Subjective Subjective Date of Service: 09/20/20 Reason For Visit: depression Interim History: Chart reviewed; case discussed with team. Vitals reviewed:mildly tachycardia Pt says he's alright and has no complaints. He said he saw his sister who brought him cloths and a coloring book, which he showed to senior writer. Staff reports pt has been continent, pleasant and less anxious Medication Compliance: Yes Mental Status Exam Mental Status Exam Narrative: Appearance: Well Grooomed Patient Orientation: Person, Place, Time Level of Consciousness: Awake, alert Patient Behavior: Appropriate, calm, cooperative Mood Description: alright Affect Description: somewhat constricted Patient Cognition Impaired: Yes Ability to Follow Directions: Good Speech Pattern: Clear Hallucinations: deferred Delusions: deferred Thought Process: Goal Oriented Thought Content: concrete Judgement: Fair Diagnostics Vital Signs (24Hr): Vital Signs - 24 hr 09/20/20 06:05 Temperature 99.2 F Pulse Rate 112 H Respiratory Rate 16 Blood Pressure 118/70 Pulse Oximetry 97 Body Mass Index 25.9 Labs Results: 09/03/20 05:25 09/12/20 07:53 Medications Medications Current Medications Generic Name Dose Route Start Last Admin Trade Name Freq PRN Reason Stop Dose Admin Acetaminophen 650 mg 09/04/20 16:34 09/18/20 08:47 Acetaminophen 325 Mg Tablet PO 650 mg Q6H PRN Administration Headache/Pain Mild Scale (1-3) Al Hydroxide/Mg Hydroxide 30 ml 09/04/20 16:34 09/13/20 16:16 Magnesium Hydrox/Alum Hydrox 30 Ml Oral.Susp PO 30 ml Q6H PRN Administration Heartburn/Nausea Hydroxyzine HCl 25 mg 09/04/20 16:34 09/05/20 02:55 Hydroxyzine Hcl 25 Mg Tablet PO 25 mg BEDTIME PRN Administration Anxiety Lorazepam 1 mg 09/06/20 14:53 09/20/20 19:49 Lorazepam 1 Mg Tablet PO 1 mg Q4H PRN Administration anxiety, insomnia Lorazepam 1 mg 09/12/20 21:00 09/20/20 22:00 Lorazepam 1 Mg Tablet PO 1 mg BID LIAM Administration Magnesium Hydroxide 30 ml 09/04/20 16:34 09/11/20 20:58 Milk Of Magnesia 30 Ml Oral.Susp PO 30 ml DAILY PRN Administration Constipation Omeprazole 40 mg 09/02/20 06:30 09/20/20 06:12 Omeprazole 40 Mg Capsule. PO 40 mg DAILY@0630 [facility] Administration Pharmacy Consult 1 each 09/01/20 20:25 Consult Rx Perform Med Rec MISCELLANE ONCE PRN Consult order Sertraline HCl 25 mg 09/17/20 09:15 09/20/20 08:17 Sertraline Hcl 25 Mg Tablet PO 25 mg DAILY [facility] Administration Allergies Allergies Allergy/AdvReac Type Severity Reaction Status Date / Time No Known Allergies Allergy Verified 07/02/20 12:21 Assessment & Plan Assessment & Plan (1) Altered mental status, unspecified: Status: Acute Code(s): R41.82 - Altered mental status, unspecified (2) Pervasive developmental disorder: Status: Acute Code(s): F84.9 - Pervasive developmental disorder, unspecified (3) Acute anxiety: Status: Acute Code(s): F41.9 - Anxiety disorder, unspecified (4) Chronic post-traumatic stress disorder: Status: Acute Code(s): F43.12 - Post-traumatic stress disorder, chronic Assessment and Plan: f/p pt presents as relatively stable no changes to primary team's tx plan continue with plan below Treat anxiety and insomnia with Lorazepam. We had a family meeting to assess possibility of [facility]. Now since his functionality has not improved, we will try to discharge him [facility], unfortunately a bed will be available on September 21 or . It seems that this is his new normal. No new interventions at this time Continue Ativan Start Zoloft 25 mg po qam to target anxiety and dysphoria Greater than 50% of the session was spent on counseling and/or coordination of care Reason for contiued inpatient stay Substantial Risk for: med/psych decompensation
[2020-09-21 06:00] VITALS: BP 128/70; PULSE 88; RESP 20; TEMP 36.3; O2SAT 96
[2020-09-21] MEDS: Omeprazole 40 MG CAPSULE.DR PO (06:29)
[2020-09-21] MEDS: Sertraline HCL 25 MG TABLET PO (08:27)
[2020-09-21] MEDS: LORazepam 1 MG TABLET PO ×3 (08:27→21:06)
--- NOTE | 2020-09-21 09:15 | P.PNPSI_ITS ---
Subjective Subjective Date of Service: 09/21/20 Reason For Visit: depression Interim History: Chart reviewed; case discussed with team. Vitals reviewed: WNL pt reports he's ok and is w/out no complaints; staff reports good behavioral control and going to groups with prompts. Mental Status Exam Mental Status Exam Narrative: Appearance: Well Grooomed Patient Orientation: Person, Place, Time Level of Consciousness: Awake, alert Patient Behavior: Appropriate, calm, cooperative Mood Description: OK Affect Description: somewhat constricted Patient Cognition Impaired: Yes Ability to Follow Directions: Good Speech Pattern: Clear Hallucinations: deferred Delusions: deferred Thought Process: Goal Oriented Thought Content: concrete Judgement: Fair Diagnostics Vital Signs (24Hr): Vital Signs - 24 hr 09/20/20 16:35 09/21/20 06:00 Temperature 98.2 F 97.3 F Pulse Rate 75 88 Respiratory Rate 20 Blood Pressure 144/74 H 128/70 Pulse Oximetry 96 Body Mass Index 25.9 Labs Results: 09/03/20 05:25 09/12/20 07:53 Medications Medications Current Medications Generic Name Dose Route Start Last Admin Trade Name Freq PRN Reason Stop Dose Admin Acetaminophen 650 mg 09/04/20 16:34 09/18/20 08:47 Acetaminophen 325 Mg Tablet PO 650 mg Q6H PRN Administration Headache/Pain Mild Scale (1-3) Al Hydroxide/Mg Hydroxide 30 ml 09/04/20 16:34 09/13/20 16:16 Magnesium Hydrox/Alum Hydrox 30 Ml Oral.Susp PO 30 ml Q6H PRN Administration Heartburn/Nausea Hydroxyzine HCl 25 mg 09/04/20 16:34 09/05/20 02:55 Hydroxyzine Hcl 25 Mg Tablet PO 25 mg BEDTIME PRN Administration Anxiety Lorazepam 1 mg 09/06/20 14:53 09/20/20 19:49 Lorazepam 1 Mg Tablet PO 1 mg Q4H PRN Administration anxiety, insomnia Lorazepam 1 mg 09/12/20 21:00 09/21/20 08:27 Lorazepam 1 Mg Tablet PO 1 mg BID LIAM Administration Magnesium Hydroxide 30 ml 09/04/20 16:34 09/11/20 20:58 Milk Of Magnesia 30 Ml Oral.Susp PO 30 ml DAILY PRN Administration Constipation Omeprazole 40 mg 09/02/20 06:30 09/21/20 06:29 Omeprazole 40 Mg Capsule.Dr PO 40 mg DAILY@0630 [facility] Administration Pharmacy Consult 1 each 09/01/20 20:25 Consult Rx Perform Med Rec MISCELLANE ONCE PRN Consult order Sertraline HCl 25 mg 09/17/20 09:15 09/21/20 08:27 Sertraline Hcl 25 Mg Tablet PO 25 mg DAILY [facility] Administration Allergies Allergies Allergy/AdvReac Type Severity Reaction Status Date / Time No Known Allergies Allergy Verified 07/02/20 12:21 Assessment & Plan Assessment & Plan (1) Altered mental status, unspecified: Status: Acute Code(s): R41.82 - Altered mental status, unspecified (2) Pervasive developmental disorder: Status: Acute Code(s): F84.9 - Pervasive developmental disorder, unspecified (3) Acute anxiety: Status: Acute Code(s): F41.9 - Anxiety disorder, unspecified (4) Chronic post-traumatic stress disorder: Status: Acute Code(s): F43.12 - Post-traumatic stress disorder, chronic Assessment and Plan: f/p pt remains stable no changes to primary team's tx plan continue with plan below Treat anxiety and insomnia with Lorazepam. We had a family meeting to assess possibility of [facility]. Now since his functionality has not improved, we will try to discharge him [facility], unfortunately a bed will be available on September 21 or . It seems that this is his new normal. No new interventions at this time Continue Ativan Start Zoloft 25 mg po qam to target anxiety and dysphoria Greater than 50% of the session was spent on counseling and/or coordination of care Reason for contiued inpatient stay Substantial Risk for: inability to function
[2020-09-21 16:40] VITALS: BP 121/86; PULSE 82; TEMP 36.2
[2020-09-22 06:30] VITALS: BP 132/61; PULSE 70; PULSE 89; RESP 16; TEMP 36.5; O2SAT 96
[2020-09-22] MEDS: Omeprazole 40 MG CAPSULE.DR PO (06:53)
[2020-09-22] MEDS: Sertraline HCL 25 MG TABLET PO (08:53)
[2020-09-22] MEDS: LORazepam 1 MG TABLET PO ×2 (08:53→14:35)
--- NOTE | 2020-09-22 10:07 | P.PNPSI_ITS ---
Subjective Subjective Date of Service: 09/22/20 Reason For Visit: depression Subjective Notes: Conditional Voluntary Interim History: The patient remains visible in the unit, less intrussive and inappropriate, easily redirected. He has attended structured groups, no evidence of side effects or desinhibited behavior with Zoloft. Medication Compliance: Yes Side effects from medications: No Attending Groups: Yes Review of Systems Acute medical concerns: No Medical Review of Systems: unchanged Mental Status Exam Mental Status Exam Patient Appearance: Well Grooomed Patient Orientation: Person, Place, Time and Situation Level of Consciousness: Awake Patient Behavior: Appropriate Mood Description: Calm and Constricted Affect Description: Withdrawn Patient Cognition Impaired: Yes Ability to Follow Directions: Good Speech Pattern: Clear Memory Description: Intact Hallucinations: None Delusions: Not Present Thought Process: Intact and Goal Oriented Thought Content: positive for Intact Judgement: Fair Diagnostics Vital Signs (24Hr): Vital Signs - 24 hr 09/21/20 16:40 09/22/20 06:30 Temperature 97.2 F 97.7 F Pulse Rate 82 89 Respiratory Rate 16 Blood Pressure 121/86 132/61 Pulse Oximetry 96 Body Mass Index 25.9 Labs Results: 09/03/20 05:25 09/12/20 07:53 Medications Medications Current Medications Generic Name Dose Route Start Last Admin Trade Name Freq PRN Reason Stop Dose Admin Acetaminophen 650 mg 09/04/20 16:34 09/18/20 08:47 Acetaminophen 325 Mg Tablet PO 650 mg Q6H PRN Administration Headache/Pain Mild Scale (1-3) Al Hydroxide/Mg Hydroxide 30 ml 09/04/20 16:34 09/13/20 16:16 Magnesium Hydrox/Alum Hydrox 30 Ml Oral.Susp PO 30 ml Q6H PRN Administration Heartburn/Nausea Hydroxyzine HCl 25 mg 09/04/20 16:34 09/05/20 02:55 Hydroxyzine Hcl 25 Mg Tablet PO 25 mg BEDTIME PRN Administration Anxiety Lorazepam 1 mg 09/06/20 14:53 09/21/20 14:56 Lorazepam 1 Mg Tablet PO 1 mg Q4H PRN Administration anxiety, insomnia Magnesium Hydroxide 30 ml 09/04/20 16:34 09/11/20 20:58 Milk Of Magnesia 30 Ml Oral.Susp PO 30 ml DAILY PRN Administration Constipation Omeprazole 40 mg 09/02/20 06:30 05/03/21 06:53 Omeprazole 40 Mg Capsule. PO 40 mg DAILY@0630 [facility] Administration Pharmacy Consult 1 each 09/01/20 20:25 Consult Rx Perform Med Rec MISCELLANE ONCE PRN Consult order Sertraline HCl 25 mg 09/17/20 09:15 09/22/20 08:53 Sertraline Hcl 25 Mg Tablet PO 25 mg DAILY [facility] Administration Allergies Allergies Allergy/AdvReac Type Severity Reaction Status Date / Time No Known Allergies Allergy Verified 07/02/20 12:21 Assessment & Plan Assessment & Plan (1) Altered mental status, unspecified: Status: Acute Code(s): R41.82 - Altered mental status, unspecified (2) Pervasive developmental disorder: Status: Acute Code(s): F84.9 - Pervasive developmental disorder, unspecified (3) Acute anxiety: Status: Acute Code(s): F41.9 - Anxiety disorder, unspecified (4) Chronic post-traumatic stress disorder: Status: Acute Code(s): F43.12 - Post-traumatic stress disorder, chronic Assessment and Plan: f/p pt remains stable no changes to primary team's tx plan continue with plan below Treat anxiety and insomnia with Lorazepam. We had a family meeting to assess possibility of [facility]. Now since his functionality has not improved, we will try to discharge him [facility], unfortunately a bed will be available on September 21 or . It seems that this is his new normal. No new interventions at this time Continue Ativan Start Zoloft 25 mg po qam to target anxiety and dysphoria Greater than 50% of the session was spent on counseling and/or coordination of care Reason for contiued inpatient stay Substantial Risk for: rapid decompensation and med/psych decompensation
[2020-09-23] MEDS: Omeprazole 40 MG CAPSULE.DR PO (05:55)
[2020-09-23 06:00] VITALS: BP 122/62; PULSE 86; RESP 16; TEMP 36.7; O2SAT 95
[2020-09-23] MEDS: LORazepam 1 MG TABLET PO ×3 (08:26→22:06)
[2020-09-23] MEDS: Sertraline HCL 25 MG TABLET PO (08:26)
--- NOTE | 2020-09-23 10:08 | HO.PSYCHPN ---
Subjective Subjective Date of Service: 09/23/20 Reason For Visit: depression Subjective Notes: Conditional Voluntary Interim History: The patient denies new symptoms, he is able to participate on a few groups. He denies side effects with Zoloft or Ativan. Yesterday, SW had a meeting with [facility] and he will go to [facility] on the or . Medication Compliance: Yes Side effects from medications: No Attending Groups: Yes Review of Systems Acute medical concerns: No Medical Review of Systems: unchanged Mental Status Exam Mental Status Exam Patient Appearance: Well Grooomed Patient Orientation: Person, Place and Situation Level of Consciousness: Awake Patient Behavior: Appropriate and Guarded Mood Description: Appropriate Affect Description: Constricted Patient Cognition Impaired: Yes Ability to Follow Directions: Good Speech Pattern: Clear Memory Description: Intact Hallucinations: None Delusions: Not Present Thought Process: Goal Oriented Thought Content: positive for Poverty of Content Judgement: Fair Diagnostics Vital Signs (24Hr): Vital Signs - 24 hr 09/23/20 06:00 Temperature 98.1 F Pulse Rate 86 Respiratory Rate 16 Blood Pressure 122/62 Pulse Oximetry 95 Body Mass Index 25.9 Labs Results: 09/03/20 05:25 09/12/20 07:53 Medications Medications Current Medications Generic Name Dose Route Start Last Admin Trade Name Freq PRN Reason Stop Dose Admin Acetaminophen 650 mg 09/04/20 16:34 09/18/20 08:47 Acetaminophen 325 Mg Tablet PO 650 mg Q6H PRN Administration Headache/Pain Mild Scale (1-3) Al Hydroxide/Mg Hydroxide 30 ml 09/04/20 16:34 09/13/20 16:16 Magnesium Hydrox/Alum Hydrox 30 Ml Oral.Susp PO 30 ml Q6H PRN Administration Heartburn/Nausea Hydroxyzine HCl 25 mg 09/04/20 16:34 09/05/20 02:55 Hydroxyzine Hcl 25 Mg Tablet PO 25 mg BEDTIME PRN Administration Anxiety Lorazepam 1 mg 09/06/20 14:53 09/21/20 14:56 Lorazepam 1 Mg Tablet PO 1 mg Q4H PRN Administration anxiety, insomnia Lorazepam 1 mg 09/22/20 14:30 09/23/20 08:26 Lorazepam 1 Mg Tablet PO 1 mg BID@0830,1430 [facility] Administration Magnesium Hydroxide 30 ml 09/04/20 16:34 09/11/20 20:58 Milk Of Magnesia 30 Ml Oral.Susp PO 30 ml DAILY PRN Administration Constipation Omeprazole 40 mg 09/02/20 06:30 09/23/20 05:55 Omeprazole 40 Mg Capsule. PO 40 mg DAILY@0630 [facility] Administration Pharmacy Consult 1 each 09/01/20 20:25 Consult Rx Perform Med Rec MISCELLANE ONCE PRN Consult order Sertraline HCl 25 mg 09/17/20 09:15 09/23/20 08:26 Sertraline Hcl 25 Mg Tablet PO 25 mg DAILY [facility] Administration Allergies Allergies Allergy/AdvReac Type Severity Reaction Status Date / Time No Known Allergies Allergy Verified 07/02/20 12:21 Assessment & Plan Assessment & Plan (1) Altered mental status, unspecified: Status: Acute Code(s): R41.82 - Altered mental status, unspecified (2) Pervasive developmental disorder: Status: Acute Code(s): F84.9 - Pervasive developmental disorder, unspecified (3) Acute anxiety: Status: Acute Code(s): F41.9 - Anxiety disorder, unspecified (4) Chronic post-traumatic stress disorder: Status: Acute Code(s): F43.12 - Post-traumatic stress disorder, chronic Assessment and Plan: f/p pt remains stable no changes to primary team's tx plan continue with plan below Treat anxiety and insomnia with Lorazepam. We had a family meeting to assess possibility of [facility]. Now since his functionality has not improved, we will try to discharge him [facility], unfortunately a bed will be available now on September 24 or . It seems that this is his new normal. No new interventions at this time Continue Ativan Continue Zoloft 25 mg po qam to target anxiety and dysphoria Greater than 50% of the session was spent on counseling and/or coordination of care Reason for contiued inpatient stay Substantial Risk for: rapid decompensation and med/psych decompensation
--- NOTE | 2020-09-23 13:53 | P.CONIM_ITS ---
History of Present Illness Data of Consult Service Date: 09/23/20 Requesting physician: Mauro Meyer Primary Care Provider: Mamadou Naik MD HPI Reason for consult: Leg swelling 61-year-old man with a history developmental disorder, anxiety, PTSD admitted to for [facility]. Developed bilateral lower extremity swelling which he reports has been ongoing for several weeks. He reports no history of this type of swelling in the past. He has no history of heart disease or congestive heart failure. He denies chest pain, shortness of breath, nausea, vomiting, diarrhea. He reported that he did have some pain to his lower extremities when palpated. His vital signs are stable. Labs are pending. Medical consultation was placed for evaluation of lower extremity edema. Review of Systems Review of Systems: Denies any recent fever chills or decrease in appetite respiratory See HPI cardiovascular see HPI gastrointestinal denies any dysphagia abdominal pain nausea vomiting or d iarrhea genitourinary denies any dysuria frequency or hematuria musculoskeletal denies any joint pain or swelling neuropsych denies any weakness or seizures all other systems reviewed are negative [facility] Medical History Anxiety Barretts esophagus Developmental delay, mild Diabetes mellitus History of prostate cancer PTSD (post-traumatic stress disorder) Surgical History Hx of colonoscopy Hx of esophagogastroduodenoscopy Hx of radical prostatectomy Social History Household Members: Family Housing: Apartment Do you presently have visiting nurse or other home services: Yes (NURSE: Anneliese) Alcohol intake: never Smoking Status: Never smoker Use of substances other than those prescribed or required for medical reasons: No Currently Displaying Signs/Symptoms of Drug Intoxication Withdrawal: No Advance Directives: No Advance Directives Information Provided: No Healthcare Proxy: Yes (Mary Mckoy) Guardian: No Do you have thoughts of harming others: None Do you have a plan to hurt others: No Plan Recently lost weight without trying: No How much weight loss: Not applicable Eating poorly because of decreased appetite: Yes Nutrition screen score: 1 Nutrition Risks: No Nutritional Risk Poor oral hygiene: No service: No Sexual orientation: Don't Know Meds Allergies Allergy/AdvReac Type Severity Reaction Status Date / Time No Known Allergies Allergy Verified 07/02/20 12:21 Active Medications: Current Medications Generic Name Dose Route Start Last Admin Trade Name Freq PRN Reason Stop Dose Admin Acetaminophen 650 mg 09/04/20 16:34 09/18/20 08:47 Acetaminophen 325 Mg Tablet PO 650 mg Q6H PRN Administration Headache/Pain Mild Scale (1-3) Al Hydroxide/Mg Hydroxide 30 ml 09/04/20 16:34 09/13/20 16:16 Magnesium Hydrox/Alum Hydrox 30 Ml Oral.Susp PO 30 ml Q6H PRN Administration Heartburn/Nausea Hydroxyzine HCl 25 mg 09/04/20 16:34 09/05/20 02:55 Hydroxyzine Hcl 25 Mg Tablet PO 25 mg BEDTIME PRN Administration Anxiety Lorazepam 1 mg 09/06/20 14:53 09/21/20 14:56 Lorazepam 1 Mg Tablet PO 1 mg Q4H PRN Administration anxiety, insomnia Lorazepam 1 mg 09/22/20 14:30 09/23/20 08:26 Lorazepam 1 Mg Tablet PO 1 mg BID@0830,1430 [facility] Administration Magnesium Hydroxide 30 ml 09/04/20 16:34 09/11/20 20:58 Milk Of Magnesia 30 Ml Oral.Susp PO 30 ml DAILY PRN Administration Constipation Omeprazole 40 mg 09/02/20 06:30 09/23/20 05:55 Omeprazole 40 Mg Capsule. PO 40 mg DAILY@0630 [facility] Administration Pharmacy Consult 1 each 09/01/20 20:25 Consult Rx Perform Med Rec MISCELLANE ONCE PRN Consult order Sertraline HCl 25 mg 09/17/20 09:15 09/23/20 08:26 Sertraline Hcl 25 Mg Tablet PO 25 mg DAILY [facility] Administration Home Medications Medication Instructions Recorded Confirmed Last Taken Type lorazepam 1 tab PO TID PRN 09/01/20 09/01/20 Unknown History mirtazapine 1 tab PO BEDTIME 09/01/20 09/01/20 Unknown History omeprazole 1 cap PO DAILY 09/01/20 09/01/20 Unknown History Physical Exam Vital Signs and Narrative: Vital Signs: Last Vital Signs Temp 98.1 F 09/23/20 06:00 Pulse 86 09/23/20 06:00 Resp 16 09/23/20 06:00 BP 122/62 09/23/20 06:00 Pulse Ox 95 09/23/20 06:00 Body Mass Index 25.9 Appearing in no acute distress head is normocephalic atraumatic eyes pupils are PERRLA sclera is anicteric mouth throat mucous membranes are intact and moist neck is supple no lymphadenopathy, no JVD noted lung sounds are clear to auscultation heart regular rate rhythm, clear S1, S2, +1 to 2 pitting edema from knees to toes bilateral lower extremities positive bowel sounds, abdomen is soft, nontender neuro patient is alert x3, no focal deficits skin no erythema, open sores, wounds or drainage noted to bilateral lower extremities, dry flaky plantar aspect of the feet Results Labs CBC and Chem 7: 09/03/20 05:25 09/12/20 07:53 Assessment and Plan (1) Edema: Status: Acute 69-year-old man admitted to for [facility]. He has complaints of lower extremity edema that have been progressively been getting worse over the last several weeks. He denies history of this in the past. He denies history of any congestive heart failure or cardiac related illnesses. Lower extremity edema. Unknown etiology at this time. - BNP, BMP, UA pending - consider bilateral Doppler ultrasound to lower extremities - If negative test results add Jose stockings for compression, low-sodium diet increased ambulation in unit Mental health. Continue all care as per psychiatric team. Attending: Dr. Adams
[2020-09-23 15:47] LABS: Anion Gap 12 (12-20); Blood Urea Nitrogen 16 mg/dL (9-16); Carbon Dioxide 29 mmol/L (22-29); Chloride 107 mmol/L (96-108); Creatinine Clr Calc Pharmacy 91.8; Estimated Glomerular Filt Rate > 60; Glucose Random 114 mg/dL (60-115); Sodium 144 mmol/L (135-145)
[2020-09-23 15:55] LABS: B Type Natriuretic Peptide 56 pg/mL (<100)
[2020-09-23 18:00] VITALS: BP 124/76; PULSE 82; TEMP 36.4
[2020-09-24] MEDS: LORazepam 1 MG TABLET PO ×4 (02:11→22:07)
[2020-09-24] MEDS: Omeprazole 40 MG CAPSULE.DR PO (05:39)
[2020-09-24] MEDS: Sertraline HCL 25 MG TABLET PO (08:26)
[2020-09-24 09:33] VITALS: BP 104/71; PULSE 99; RESP 14; TEMP 36.7; O2SAT 100
--- NOTE | 2020-09-24 10:16 | P.PNPSI_ITS ---
Subjective Subjective Date of Service: 09/24/20 Reason For Visit: depression Subjective Notes: Conditional Voluntary Interim History: The patient remains visible in the unit, no evidence of delirium. He has bilateral lower extremity edema, bloodwork came back negative. Doppler on lower extremities ordered. Medication Compliance: Yes Side effects from medications: No Attending Groups: Yes Review of Systems Acute medical concerns: No Medical Review of Systems: changed (recent edema on lower extremities) Mental Status Exam Mental Status Exam Patient Appearance: Well Grooomed Patient Orientation: Person and Place Level of Consciousness: Awake and Appropriate Patient Behavior: Appropriate and Cooperative Mood Description: Calm Affect Description: Constricted Patient Cognition Impaired: Yes Ability to Follow Directions: Good Speech Pattern: Clear Memory Description: Intact Thought Process: Goal Oriented Thought Content: positive for [place] and positive for [place] of Content Judgement: Fair Diagnostics Vital Signs (24Hr): Vital Signs - 24 hr 09/23/20 18:00 09/24/20 09:33 Temperature 97.5 F 98.1 F Pulse Rate 82 99 Respiratory Rate 14 Blood Pressure 124/76 104/71 Pulse Oximetry 100 Body Mass Index 25.9 Labs Results: 09/03/20 05:25 09/23/20 14:48 Labs: Laboratory Results - last 48 hr 09/23/20 09/23/20 14:48 14:48 Sodium 144 Potassium 4.0 Chloride 107 Carbon Dioxide 29 Anion Gap 12 BUN 16 Creatinine 0.72 Estim Creat Clear Calc 91.8 Estimated GFR > 60 Random Glucose 114 Calcium 9.0 B-Natriuretic Peptide 56 Imaging Radiology Impressions: ITS Impressions Venous Duplex 09/23/20 16:45 IMPRESSION: No DVT demonstrated in the right and left lower extremity. Medications Medications Current Medications Generic Name Dose Route Start Last Admin Trade Name Freq PRN Reason Stop Dose Admin Acetaminophen 650 mg 09/04/20 16:34 09/18/20 08:47 Acetaminophen 325 Mg Tablet PO 650 mg Q6H PRN Administration Headache/Pain Mild Scale (1-3) Al Hydroxide/Mg Hydroxide 30 ml 09/04/20 16:34 09/13/20 16:16 Magnesium Hydrox/Alum Hydrox 30 Ml Oral.Susp PO 30 ml Q6H PRN Administration Heartburn/Nausea Hydroxyzine HCl 25 mg 09/04/20 16:34 09/05/20 02:55 Hydroxyzine Hcl 25 Mg Tablet PO 25 mg BEDTIME PRN Administration Anxiety Lorazepam 1 mg 09/06/20 14:53 09/24/20 02:11 Lorazepam 1 Mg Tablet PO 1 mg Q4H PRN Administration anxiety, insomnia Lorazepam 1 mg 09/22/20 14:30 09/24/20 08:26 Lorazepam 1 Mg Tablet PO 1 mg BID@0830,1430 [facility] Administration Magnesium Hydroxide 30 ml 09/04/20 16:34 09/11/20 20:58 Milk Of Magnesia 30 Ml Oral.Susp PO 30 ml DAILY PRN Administration Constipation Omeprazole 40 mg 09/02/20 06:30 09/24/20 05:39 Omeprazole 40 Mg Capsule. PO 40 mg DAILY@0630 [facility] Administration Pharmacy Consult 1 each 09/01/20 20:25 Consult Rx Perform Med Rec MISCELLANE ONCE PRN Consult order Sertraline HCl 25 mg 09/17/20 09:15 09/24/20 08:26 Sertraline Hcl 25 Mg Tablet PO 25 mg DAILY [facility] Administration Allergies Allergies Allergy/AdvReac Type Severity Reaction Status Date / Time No Known Allergies Allergy Verified 07/02/20 12:21 Assessment & Plan Assessment & Plan (1) Edema: Status: Acute Code(s): R60.9 - Edema, unspecified Assessment and Plan: 69-year-old man admitted to for [facility]. He has complaints of lower extremity edema that have been progressively been getting worse over the last several weeks. He denies history of this in the past. He denies history of any congestive heart failure or cardiac related illnesses. Lower extremity edema. Unknown etiology at this time. - BNP, BMP, UA pending - consider bilateral Doppler ultrasound to lower extremities - If negative test results add Jose stockings for compression, low-sodium diet increased ambulation in unit Mental health. Continue all care as per psychiatric team. Attending: Dr. Adams (2) Altered mental status, unspecified: Status: Acute Code(s): R41.82 - Altered mental status, unspecified Assessment and Plan: The patient was admitted for delirium and disorganized behavior, so far, improved but his functionality has lowered. We discussed the possibility of DDS Respite. Greater than 50% of the session was spent on counseling and/or coordination of care Reason for contiued inpatient stay Substantial Risk for: stable for discharge, rapid decompensation and med/psych decompensation
--- NOTE | 2020-09-24 14:22 | PC.NURSE ---
Pt seen for individual intervention with focus on anxiety relief. pt noted to be restless, tearful, perseverating on d/c tomorrow. Pt provided with deep breathing demonstration with good return noted. Pt did no want to engage in other distraction methods, but was willing to ambulate in unit as a self calming activity
[2020-09-24 18:00] VITALS: BP 108/68; PULSE 86; TEMP 36
[2020-09-25 05:30] VITALS: BP 123/64; PULSE 85; RESP 16; TEMP 36.1; O2SAT 98
--- NOTE | 2020-09-25 09:12 | PM.PSYDC ---
DS: Providers Provider Date of Service: 09/25/20 Date of admission: 09/04/20 21:26 Primary care physician: Mamadou Naik MD Consults: 09/06/20 21:57 Consult to Neurology Routine Consulting Provider: [facility] Reason for consultation: sudden mse decline-memory, speech, communication Has provider been notified: No 09/23/20 10:39 Consult to Hospitalist Routine Consulting Provider: Hospitalist Reason For Exam: leg swelling DS: Diagnosis Discharge Diagnosis (1) Edema: Status: Acute (2) Altered mental status, unspecified: Status: Acute Problem details: Altered mental status appears to be related to his anxiety and insomnia. No major neurological problems or metabolic abnormalities other than slight dehydration. DS: Medications Discharge Medications Home Medications: Home Medications Medication Instructions Recorded Confirmed lorazepam 1 tab PO TID PRN 09/01/20 09/01/20 mirtazapine 1 tab PO BEDTIME 09/01/20 09/01/20 omeprazole 1 cap PO DAILY 09/01/20 09/01/20 Previous Rx's Medication Instructions Recorded lorazepam 1 mg PO TID 30 Days #90 tab 09/24/20 omeprazole 40 mg PO DAILY@0630 30 Days #30 cap 09/24/20 sertraline 25 mg PO DAILY 30 Days #30 tab 09/24/20 Discharge Plan Discharge Patient Disposition: Xfer Other Discharge Diagnosis: Altered mental status Referrals: Therapist: Ezequiel ([facility]) [Other] - 09/26/20 1:00 pm Psych Prescriber: [facility] [Other] - 1 Week Mamadou Naik MD [Primary Care Provider] - 10/01/20 11:30 am (In person. ) Discharge Medications: New omeprazole 40 mg Capsule,Delayed Release(Dr/Ec) 40 mg PO DAILY@0630 30 Days Qty: 30 RF: 1 sertraline 25 mg Tablet 25 mg PO DAILY 30 Days Qty: 30 RF: 1 lorazepam 1 mg Tablet 1 mg PO TID 30 Days Qty: 90 RF: 1 Continued omeprazole 40 mg capsule,delayed release(DR/EC) 1 cap PO DAILY RF: 0 lorazepam 0.5 mg tablet 1 tab PO TID PRN (Reason: Anxiety) RF: 0 Discontinued mirtazapine 15 mg tablet 1 tab PO BEDTIME RF: 0 Discharge Orders: Discharge Order (Routine); Ordered 09/25/20 Ordered By: Mauro Meyer Diet: low salt diet Activity on Discharge: As tolerated Stand Alone Forms: Patient Portal Discharge page Care Plan Goals: Continue with outpatient providers and DSS Respite Health Concerns: F/U with PCP for low extremity edema and GERD Plan of Treatment: Continue outpatient treatment Assessment: The patient is an adult male with Pervasive Developmental disorder, that became psychotic in the context of medication changes. Psychosis resolved but it ws evident that he was anxious and dysphoric and Zoloft was started with fair improvement. Even though that his psychosis and delirium resolved, his level of functionaing has not gone back to baseline, probably, it would be his new baseline. Coordination of care with DDS was arranged Mental Status Exam Mental Status Exam Patient Appearance: Well Grooomed Patient Orientation: Person, Place and Time Level of Consciousness: Awake Patient Behavior: Appropriate and Cooperative Mood Description: Appropriate Affect Description: Constricted Patient Cognition Impaired: Yes Ability to Follow Directions: Good Speech Pattern: Clear Memory Description: Intact Hallucinations: None Delusions: Not Present Thought Process: Goal Oriented Thought Content: positive for [place] and positive for Logical Judgement: Fair Data Data Completed and Pending Completed studies during hospitalization [Text1]: 09/23/20 09/23/20 14:48 14:48 Sodium 144 Potassium 4.0 Chloride 107 Carbon Dioxide 29 Anion Gap 12 BUN 16 Creatinine 0.72 Estim Creat Clear Calc 91.8 Estimated GFR > 60 Random Glucose 114 Calcium 9.0 B-Natriuretic Peptide 56 Imaging Diagnostic Imaging Impressions Venous Duplex 09/23/20 16:45 IMPRESSION: No DVT demonstrated in the right and left lower extremity. DS: Summary Hospital Course Hospital Course: The patient was initially admitted after he was psychotic and delirius for several days after he was started on medications for dysphoria and poor sleep by his PCP; he was disorganized, grossly psychotic and confused when he arrived on the ED. He was initially treated and fully worked out medically for organic causes such as recent infections, vascular problems and neurologic issues. All his medications were stopped and eventually, we will able to control his anxiety only with benzodiazepines. After several days that we hold Seroquel, Remeron and other medications, the patient went back to his near baseline. Her sister reported that at baseline, he was highly independent, he lives in an-in-law apartment, he does chores and he can go by himself to his day program. His psychotic symptoms resolved but he remained anxious and dysphoric, so we added a low dose of Zoloft with fair improvement of his mood and no evidence of delirium or psychosis. During the inpatient admission, he improved on Ativan, titrated up to 1 mg po tid and later Zoloft. Even though, that his delirium, psychosis and confusion improved, his sister noticed a lowering on his level of independent functioning that was not in correlation with neurologic or medical causes. He had some edema but it was not cardiologic in nature, full work-out was done. We discussed the case with DSS and the family, the patient and DSS agreed to discharge to Respite as a good transition for outpatient. No safety concerns. Time spent discussing smoking cessation with patient: 3 to 10 minutes Status at Discharge Cognitive/behavioral status at discharge: Resolution of delirium and psychotic symptoms, still some residual dysphoria and anxiety but no safety concerns. Functional status at discharge: independent ambulation Overall status at discharge: patient is progressing back to baseline Time Spent with Patient Time attestation: Total time spent providing and/or coordinating discharge services: Time spent: Less than 30 minutes
[2020-09-25] MEDS: Omeprazole 40 MG CAPSULE.DR PO (09:49)
[2020-09-25] MEDS: LORazepam 1 MG TABLET PO (09:49)
[2020-09-25] MEDS: Sertraline HCL 25 MG TABLET PO (09:49)
== END 2020-09-25 14:00 | disposition other institution (70) | DRG 880 ==
LOC: HO.ED 09-04 19:13 → HO.PM5 09-04 21:38
PROVIDERS: Nurse Practitioner Acute Care; Physician Assistant; Admitting Provider Psychiatry & Neurology Psychiatry; Emergency Provider Emergency Medicine; PCP Internal Medicine; Visit Provider Psychiatry & Neurology Psychiatry
DX: F41.9 Anxiety disorder, unspecified (principal); F43.12 Post-traumatic stress disorder, chronic; F84.9 Pervasive developmental disorder, unspecified; R60.0 Localized edema; Z20.822 Contact with and (suspected) exposure to COVID-19; Z79.899 Other long term (current) drug therapy
CPT/HCPCS: 36415; 80048; 80053; 80076; 80307; 80320; 81003; 82140; 82607; 82746; 83880; 84443; 85025; 86140; 86780; 87389; 87635; 93005; 93970; 99285; Q0163

== ENCOUNTER 2021-03-24 06:01 | Outpatient (REF) | payer MEDICARE, MEDICAID, SELFPAY ==
[2021-03-24 11:27] LABS: MANUAL DIFF FLAG NO
[2021-03-24 11:36] LABS: Basophils Percent Auto 0.7 % (0-2); Eosinophils Absolute Auto 0.1 X10*3/uL (0.0-0.4); Eosinophils Percent Auto 1.8 % (0-4); Hematocrit 47.2 % (42.0-52.0); Hemoglobin 15.2 g/dl (14.0-18.0); Imm Gran Abs Auto 0.01 X10*3/uL (0.00-0.03); Imm Gran Pct Auto 0.2 % (0.0-0.4); Lymphocytes Absolute Auto 0.9 X10*3/uL (1.2-4.9); Lymphocytes Percent Auto 16.4 % (20-40); Mean Corpuscular HGB Conc 32.2 g/dl (31.0-36.0); Mean Corpuscular Hemoglobin 28.8 pg (27.0-33.0); Mean Corpuscular Volume 89.6 fL (80.0-98.0); Mean Platelet Volume 11.7 fL (9.4-12.4); Monocytes Absolute Auto 0.4 X10*3/uL (0.1-1.2); Monocytes Percent Auto 7.8 % (2-11); Neutrophils Absolute Auto 4.14 x10*3/uL (2.0-8.3); Neutrophils Percent Auto 73.1 % (45-73); Platelet Count 186 X10*3/uL (160-400); Red Blood Count 5.27 X10*6/uL (4.60-5.80); White Blood Count 5.7 X10*3/uL (4.8-10.8)
[2021-03-24 11:53] LABS: Estimated Average Glucose 123 mg/dL; Hemoglobin A1c % 5.9 %
[2021-03-24 12:12] LABS: Alanine Aminotransferase 12 U/L (0-40); Albumin Level 3.7 g/dL (3.5-5.0); Alkaline Phosphatase 71 U/L (39-117); Anion Gap 13 (12-20); Aspartate Amino Transferase 14 U/L (5-37); Bilirubin Total 0.3 mg/dL (0.0-1.0); Blood Urea Nitrogen 14 mg/dL (9-16); Calcium 8.7 mg/dL (8.4-10.2); Carbon Dioxide 27 mmol/L (22-29); Chloride 108 mmol/L (96-108); Cholesterol 113 mg/dL; Estimated Glomerular Filt Rate > 60; Glucose Fasting 116 mg/dL (60-99); HDL Cholesterol 35 mg/dL; LDL Cholesterol Calculated 69 mg/dl; Potassium 4.8 mmol/L (3.3-5.1); Sodium 143 mmol/L (135-145); Total Protein 6.7 g/dL (6.5-8.0); Triglycerides 48 mg/dL
[2021-03-24 12:46] LABS: Prostate Specific Antigen < 0.05 ng/mL (<0.05-4.0)
== END 2021-03-24 06:02 | disposition home or self-care (01) ==
LOC: HO.HMGCLDS 06:01
PROVIDERS: PCP Internal Medicine; Visit Provider Internal Medicine
DX: R53.83 Other fatigue (principal); E11.9 Type 2 diabetes mellitus without complications; E78.5 Hyperlipidemia, unspecified; Z12.5 Encounter for screening for malignant neoplasm of prostate
CPT/HCPCS: 36415; 80053; 80061; 83036; 84153; 85025

== ENCOUNTER → 2022-10-29 06:21 | Day surgery (SDC) | payer MEDICARE, MEDICAID, SELFPAY ==
--- NOTE | 2022-10-28 12:00 | P.CONAN_ITS ---
Documented by User: Odalys Sanderson NP 10/28/22 12:00 HPI - Anesthesia Eval Consult details Narrative: 71yo M for Upper Endoscopy and Colonoscopy PMF Active Problems Active Problems: All Active Problems (Updated 10/28/22 @ 10:43 by Vibha Rick RN) Acute anxiety (Acute) Chronic post-traumatic stress disorder (Acute) Pervasive developmental disorder (Acute) Edema (Acute) Past Medical History Medical History Anxiety Barretts esophagus Depression Developmental delay, mild Diabetes mellitus History of prostate cancer PTSD (post-traumatic stress disorder) Surgical History Surgical History History of oral surgery History of surgery on arm Hx of colonoscopy Hx of esophagogastroduodenoscopy Hx of radical prostatectomy Social History Social History Household Members: Family Housing: Apartment Are you a primary workforce investment act career manager to a significant other at home: No Do you presently have visiting nurse or other home services: Yes (NURSE: Anneliese) Alcohol intake: never Patient Tobacco Use Status: Never used Tobacco Use of substances other than those prescribed or required for medical reasons: No Are you DNR?: No Advance Directives: No Advance Directives Information Provided: Yes service: No Sexual orientation: Don't Know Meds Allergies Allergy/AdvReac Type Severity Reaction Status Date / Time No Known Allergies Allergy Verified 10/29/22 06:29 Home Medications Medication Instructions Recorded Confirmed Last Taken Type omeprazole 20 mg capsule,delayed 20 mg PO DAILY 10/28/22 10/29/22 Unknown History release oxybutynin chloride 10 mg 10 mg PO DAILY 10/28/22 10/29/22 Unknown History tablet,extended release 24 hr Exam Exam Date and Time: October 28, 2022 1200 Assessment and Plan Assessment Anesthesia Assessment: Chart Reviewed Documented by User: Ginger Marie MD 10/29/22 09:02 [facility] Active Problems Active Problems: All Active Problems (Updated 10/29/22 @ 07:15 by Ginger Marie MD) Acute anxiety (Acute) Chronic post-traumatic stress disorder (Acute) Pervasive developmental disorder (Acute) Edema (Acute) Past Medical History Medical History Anxiety Barretts esophagus Depression Developmental delay, mild Diabetes mellitus History of prostate cancer PTSD (post-traumatic stress disorder) Family History Family history of problems with anesthesia: No Surgical History Surgical History History of oral surgery History of surgery on arm Hx of colonoscopy Hx of esophagogastroduodenoscopy Hx of radical prostatectomy History of Problems with Anesthesia: No Social History Social History Household Members: Family Housing: Apartment Are you a primary workforce investment act career manager to a significant other at home: No Do you presently have visiting nurse or other home services: Yes (NURSE: Anneliese) Alcohol intake: never Patient Tobacco Use Status: Never used Tobacco Use of substances other than those prescribed or required for medical reasons: No Are you DNR?: No Advance Directives: No Advance Directives Information Provided: Yes service: No Sexual orientation: Don't Know Meds Allergies Allergy/AdvReac Type Severity Reaction Status Date / Time No Known Allergies Allergy Verified 10/29/22 06:29 Home Medications Medication Instructions Recorded Confirmed Last Taken Type omeprazole 20 mg capsule,delayed 20 mg PO DAILY 10/28/22 10/29/22 Unknown History release oxybutynin chloride 10 mg 10 mg PO DAILY 10/28/22 10/29/22 Unknown History tablet,extended release 24 hr Exam Height,Weight and Vital Signs: Height 5 ft 7 in Weight 71.668 kg Vital Signs Temp Pulse Resp BP Pulse Ox O2 Del Method 10/29/22 06:36 98.9 F 106 H 16 135/79 97 Room Air Airway Mallampati Class: III TM Dist: >3cm Neck ROM: Full Loose/Missing/Broken Teeth: Yes (? Teeth grinding. Denies loose or missing teeth) Heart: RRR Lungs: CTAB Assessment and Plan Assessment Anesthesia Assessment: Anesthesia Plan Discussed Final Anesthetic Review Family History of Problems with Anesthesia: No History of Problems with Anesthesia: No NPO: Yes ASA Class: II Final Preanesthetic Review: No Changes in Pt Med Stat, Meds/Allgs Chart Reviewed, Consent Obtained/Reviewed and Anes Risks/Benef Reviewed Patient Risk: Low Procedure Risk: Low Assessment/Block/Sedation in SS: Assess/Block/Sedation-SS Anesthetic Plan Anesthetic Plan: MAC: Disposition: Standard PACU
[2022-10-29 06:31] VITALS: BMI 24.7
[2022-10-29 06:36] VITALS: BP 135/79; PULSE 106; RESP 16; TEMP 37.2; O2SAT 97
[2022-10-29] MEDS: Lactated Ringers 1,000 ML 100 ML IVCONT (06:50)
--- NOTE | 2022-10-29 07:29 | MHC.SHP ---
Pre-Procedural Eval Section A Date of Service: 10/29/22 Section B Chief Complaint: screening for malignant neoplasm of colon Details of Present Illness: see H&P no changes Relevant Family History (Specify if Yes): No Relevant Social History: None Present Medications: see Short Stay Collaborative assessment Medical History: No relevant PMH History of Previous Operations: No relevant previous surgery Allergies: Allergies Allergy/AdvReac Type Severity Reaction Status Date / Time No Known Allergies Allergy Verified 10/29/22 06:29 Review of Systems Sugical H&P ROS: Negative: Constitution, Cardiovascular, Respiratory, Neurological, Psychiatric, Hem-Onc, Allergic/Immunologic, Gastrointestinal, Genitourinary, Musculoskeletal, Integumentary, Endocrine and Eyes/Ears/Nose/Throat Exam Surgical H&P Exam: Normal: HEENT, Normal: Heart, Normal: Lungs, Normal: Extremities, Normal: Abdomen, Normal: Skin and Normal: Neurological Plan Diagnosis/Plan: Unchanged I have reviewed the history and physical and performed a pertinent physical examination on my patient. No changes have occurred unless specified. Time Spent With Patient Time: Total time managing care of this patient today ____ minutes.
--- NOTE | 2022-10-29 09:02 | PM.EVENT ---
Event Note Date of Service: 10/29/22 Event Note: 71 yo male patient who came in for EGD, Colonoscopy. NPO status verified. Consented for MAC anesthesia with GA back up per protocol. Patient was brought to the room, connected to monitors as per guidelines and MAC anesthesia induced. I was called to the room by nurse at 7:40am. On arrival was told that patient had a lot of material in stomach which endoscopist was trying to suction out but material was very thick. Patient had a h/o diabetes but diet controlled. There was no indication pre-op of any problems with prep. Decision was made to intubate patient KANDACE both to protect the airway during EGD but also during colonoscopy which patient was having as a second procedure. Dr Villanueva arrived in room and provided Provu as patient was a possible difficult intubation. Dr Villanueva then went to get the blade for the Provu. molding technician was called to the room and Dr Blackwood was also texted to the room. All doctors arrived promptly. As preparations were being made to intubate and with Dr Cagle still suctioning, patient started to desaturate. As scope was pulled out, a massive amount of faeculent-looking material poured out into mask and filled oropharynx which was immediately suctioned. Appearance and volume of material led to ???Small bowel obstruction as a possible diagnosis. In spite of continuous suctioning, visualization was difficult but using video laryngoscopy and following direct visualization of the vocal cords, endo tracheal tube was placed. Breath sounds were noted to be very muffled. At the same time the patient became asystolic. CPR was immediately started and a code called. Epinephrine was given and ACLS protocol followed. Brownish material was suctioned out of the ETT. The ETT was replaced with a larger diameter tube again under direct vision with video laryngoscope and position checked with fiberoptic laryngoscopy. CPR was continued following ACLS protocol and Armen device. A large bore IV was started by Dr Miner and crystalloids infused. There was transient return of circulation with weak pulses but this was not sustained. After 30 minutes of continuous CPR, patient was pronounced at 8:21am Time Spent With Patient Time: Total time managing care of this patient today ____ minutes.
--- NOTE | 2022-10-29 09:57 | PM.OP ---
Brief Operative Note Date of Service: 10/29/22 Pre-op diagnosis: barretts screening Post-op diagnosis: same Procedure: attempted egd Surgeon: Antoni Cagle Was an Industrial Maintenance [employer] Helper used for this Procedure?: No Estimated blood loss (mL): 0 Pathology: none sent Condition: Disposition: other
--- NOTE | 2022-10-29 13:01 | OP_ITS ---
DATE OF SERVICE: 10/29/2022 SURGEON: Antoni Cagle MD INDICATIONS: [place] esophagus and colon cancer screening. PREOPERATIVE DIAGNOSIS: POSTOPERATIVE DIAGNOSIS: PROCEDURE PERFORMED: Attempted upper endoscopy. ESTIMATED BLOOD LOSS: COMPLICATIONS: ANESTHESIA: Monitored anesthesia care. ASSISTANTS: SPECIMENS: DESCRIPTION OF PROCEDURE: A history and physical was performed. The risks and benefits of the procedure were explained to the patient. Informed consent was obtained. The patient was placed in the left lateral decubitus position. The Olympus video gastroscope was introduced into the esophagus. Immediately, a significant amount of brownish liquid material not typical for gastric secretions was identified in the mid to distal esophagus and suctioning was begun through the scope. Suctioning was continued and more liquid was removed. At this point, it was elected to intubate the patient for airway protection. The scope was removed and a large amount of gastric contents was noted to be in the hypopharynx and in the oropharynx. The procedure was aborted. The patient was noted to desaturate and ACLS protocols were begun after the patient suffered cardiopulmonary arrest. These were unsuccessful, and the patient . Please see the cardiac arrest sheet and anesthesia notes for details. The patient's family was notified. MD NURY Knowles/ANDREEA / [id number] MTDD
== END | disposition expired ==
PROVIDERS: PCP Internal Medicine; Visit Provider Internal Medicine Gastroenterology
PROC: (CPT 43235; principal; 2022-10-29 07:30)
DX: Z12.11 Encounter for screening for malignant neoplasm of colon (principal); Z86.010 Personal history of colon polyps; I97.711 Intraoperative cardiac arrest during other surgery; Y84.8 Other medical procedures as the cause of abnormal reaction of the patient, or of later complication, without mention of misadventure at the time of the procedure; Y73.3 Surgical instruments, materials and gastroenterology and urology devices (including sutures) associated with adverse incidents; Y92.234 Operating room of hospital as the place of occurrence of the external cause; K22.70 Barrett's esophagus without dysplasia; E11.9 Type 2 diabetes mellitus without complications; Z85.46 Personal history of malignant neoplasm of prostate; F32.A Depression, unspecified; F41.1 Generalized anxiety disorder; F43.10 Post-traumatic stress disorder, unspecified; Z79.899 Other long term (current) drug therapy
CPT/HCPCS: 43235; 31500; 92950; 99499; J0171; J0330; J0461